=== PATIENT | female | born 1995 | race Caucasian/White ===

== ENCOUNTER 2023-08-28 16:39 | Outpatient (RCR) | payer SELFPAY ==
[2023-08-28 17:33] LABS: HCG Quantitative 31 mIU/mL
[2023-08-30 14:09] LABS: HCG Quantitative 100 mIU/mL
== END 2023-09-26 18:20 | disposition home or self-care (01) ==
LOC: LAB 16:39
PROVIDERS: Visit Provider Obstetrics & Gynecology
DX: N92.6 Irregular menstruation, unspecified (principal)
CPT/HCPCS: 36415; 84702

== ENCOUNTER 2023-10-04 16:34 | Outpatient (OUT) | payer OTHER, SELFPAY ==
--- NOTE | 2023-10-04 16:36 | US_ITS ---
The [address] [address] Patient Name: ZEUS MORRIS MRN: [id number] date: 1995 Sex: F Assigned Patient Location: [facility] Current Patient Location: [facility] Accession/Order Number: [id number] Exam Date: 10/04/2023 17:36 Report Date: 10/04/2023 18:50 At the request of: MAIKOL PADRON Procedure: US OB transvaginal EXAM: US OB transvaginal HISTORY: Spotting in early . COMPARISON: None available. TECHNIQUE: Transvaginal ultrasound of the pelvis was performed using Duplex Doppler and color-flow. Transvaginal ultrasound medically necessary for optimal imaging. FINDINGS: Ultrasound images demonstrate a gravid uterus with a single intrauterine gestational sac. Mean sac diameter measures 3.40 cm, indicative of a 8 week 4 day gestation. Within the gestational sac is a well-defined embryo with a crown rump length measuring 2.25 cm indicative of a 9 weeks 0 day gestation. AUA of 8 weeks 6 days. Embryonic cardiac activity is noted at a rate of 165 beats per minute. Yolk sac noted measuring 0.26 cm. activity noted by plastic tile layer. Normal-appearing gravid uterus without evidence of subchorionic hematoma, mullerian abnormality, leiomyoma. Cervical length measuring 4.7 cm. Cervix is closed. The right ovary measures up to 2.3 x 1.6 x 1.7 cm, and the left ovary measures up to 2.1 x 2.1 x 2.0 cm. Arterial and venous flow are noted in both ovaries. No significant free fluid is noted within the pelvis. US/US OB transvaginal IMPRESSION: Single live intrauterine gestation at approximately 8 weeks 6 days. No acute findings. Electronically authenticated by: OCHOA BALL Date: 10/04/2023 18:50
--- OUTSIDE RECORDS SUMMARY | 2023-10-04 16:38 | XMS_ITS | CCD ---
Author Organization [facility] Care Team Providers Care Fab[employer] Awning Repairer Name Role Phone Meghan Cevallos Primary Care Physician Debra Fuentse Unavailable Unavailable Ruth Ann Butt Unavailable Unavailable REQUEST, NONE LISTED Primary Care Unavaila ble NEREIDA, DR LASSITER Admitting Unavailable NEREIDA, DR LASSITER Consulting Unavailable NEREIDA, DR LASSITER Attending Unavailable ZIEBER, DR BRANDEE Oquendo Consulting Unavailable NEREIDA, DR LASSITER Admitting Unavailable NEREIDA, DR LASSITER Consulting Unavailable NEREIDA, DR LASSITER Attending Unavailable REQUEST, NONE LISTED Primary Care UnavailStarla Montiel Primary Care Physician James Tineo Attending Unavailable James Tineo Attending Unavailable Allergies Allergy Classification Reported Allergen(s) Allergy Type Date of Onset Reaction(s) Facility (3 sources) Acetaminophen / HYDROcodone; Translations: [acetaminophen-hy drocodone] Drug Allergy [facility] (3 sources) Amoxicillin; Translations: [amoxicillin] Drug Allergy rash [facility] (3 sources) Latex; Translations: [Latex] Drug allergy Eruption of skin (disorder) [facility] (3 sources) Penicillins; Translations: [penicillins] Drug allergy rash [facility] (3 sources) Sulfonamides (Antibiotic); Translations: [sulfa drugs] Drug allergy [facility] (1 source) Acetaminophen / HYDROcodone Drug Allergy 5 [facility] (1 source) Amoxicillin Drug Allergy 5 [facility] (2 sources) Codeine; Translations: [codeine] Drug Allergy 6 [facility] (1 source) Sulfonamides (Antibiotic) Drug allergy (disorder) 6 [facility] (1 source) Loratadine; Translations: [loratadine] Drug Allergy [facility] Repository Medications Current Medications Medication Drug Class(es) Dates Sig (Normalized) Sig (Original) brompheniramine maleate 0.4 mg/ml / dextromethorphan hydrobromide 2 mg/ml / pseudoephedrine hydrochloride 6 mg/ml oral solution (1 source) alpha-Adrenergic Agonist, Uncompetitive M-cozhuz-G-asparta te Receptor Antagonist, Sigma-1 Agonist Start: 05-15-2022 End: 05-17-2022 Bromfed DM oral syrup 10 mL, Oral, q4hr for cold symptoms for 2 day(s), 80 mL, Refill(s) 0, MAX 40 mL/day, [id number], 157.5, cm, 05/15/22 17:48:00 EST, Height/Length Dosing, 59.5, kg, 05/15/22 17:48:00 EST, Weight Dosing Start Date: 05/15/22 Stop Date: 05/17/22 Status: Ordered ibuprofen 600 mg oral tablet (2 sources) Nonsteroidal Anti-inflammatory Drug Start: 11-24-2020 take 1 tablet by mouth every six hours ibuprofen 600 mg Tab 600 mg = 1 tab(s), Oral, q6hr, # 15 tab(s), Refills(s) 0, Pharmacy: [id number], 160, cm, 11/22/20 6:07:00 EDT, Height/Length Dosing, 65, kg, 11/22/20 6:07:00 EDT, Weight Dosing Start Date: 11/24/20 Status: Ordered Multivitamins (2 sources) Start: 10-28-2020 take 1 tablet by mouth once daily Multivitamins 1 tab(s), Oral, Daily, Refill(s) 0 Start Date: 10/28/20 Status: Ordered Problems Active Problems Problem Classification Problem Date Documented Date Episodic/Chronic Asthma (2 sources) Asthma 05-23-2012 Chronic Immunizations and screening for infectious disease (1 source) Encounter for screening for human papillomavirus (HPV); Translations: [ENC SCREENING HUMAN PAPILLOMAVIRUS] Onset: 04-30-2022 Episodic Menstrual disorders (4 sources) Irregular menstruation, unspecified; Translations: [IRREGULAR MENSTRUATION UNSPECIFIED] Onset: 03-24-2022 Chronic Other lower respiratory disease (1 source) Disorder of respiratory system; Translations: [Other specified respiratory disorders] Onset: 05-15-2022 Episodic Other and delivery including normal (2 sources) 05-16-2014 Episodic Substance-related disorders (2 sources) Smoker 01-01-2014 Chronic Comment on above: Added secondary to d ocumentation in Social History. Unclassified (1 source) Tobacco use during ( Confirmed ) 01-01-2014 Unclassified (1 source) Tobacco use during 01-01-2014 Viral infection (3 sources) Herpes simplex type 2 infection; Translations: [Viral disease] Onset: 05-15-2022 10-29-2020 Episodic Past or Other Problems Problem Classification Problem Date Documented Date Episodic/Chronic Other screening for suspected conditions (not mental disorders or infectious disease) (6 sources) Culture positive for methicillin resistant Staphylococcus aureus; Translations: [Encounter for screening for malignant neoplasm of cervix] Onset: 03-21-2018 03-26-2018 Episodic Comment on above: MRSA axilla abscess 03/21/18 Unclassified (1 source) Exposure to 2019 novel coronavirus; Translations: [Contact with and (suspected) exposure to COVID19] Onset: 12-19-2021 Unclassified (2 sources) Streptococcus agalactiae (organism) Resolved: 07-28-2016 07-31-2016 Unclassified (6 sources) Onset: 01-01-2014 Resolved: 11-22-2020 12-04-2014 Results Test Name Value Interpretation Reference Range Facility Coding Summary.on 05-18-2022 Coding Summary. [id number] G h0bWw+PGhlYWQ+EP4DYRC hO28tyHJzvA2QV1fBIY7K HFZSUAMZWL0RTF9atUN1B CbzP4WnubGz PygkiULoOA69GUf4SIS4y XpiUWiovT1zpDVcP7n4Oj BlBX59xY66IQdtHYZgMqK 3LjZpbjsgbWFy Y4cyJiVesHQqZyt+PHRhY mxlIHdpZHRoPScxMDAlJy PdzVowXT6qRi4hCUTmOWJ vbGxhcHNlOiBj y4jzITYmIXmyQJ0wgOujH 1OcpRA5RXYqg8x4Ej08xD I+CUEoHIG7uWzzQIxgn32 2FgLwc3nlVGC1 xOGjAVwcKSJ1P96dd0Z2Z HDbTENuEYZ3fRW7tO1gbV dbyfxdB4XsySOfQgO9TUO 5pAHbwS6leBkl kznlbU2fYju+F79YOA9OS QPIRK4KOtg7K2YsJfixdZ I+WL25OCGnFZ94bGDjiVE cs9sesTz9YqQe GEOgZDU6aEllOGwgm4EeY ABmB01kdVNng9M3WGTijG mftKTmVhXvrRX8qN7lDUg vwlcgy5ctareu Rrgyc0ukrr16hA71Z68iK QbhNHAoDIW4VBMxPHGtpG ilgt2zsM7uDa9+ETtup1q wl6zhyUq4WtEm OHFiyuQtgQdcJKL2b5UnT i53D5LhhIflz2DoDyu4yy 24mFSqz3F3hKB2HNlzJQH nsE3uNKeuCfY8 GVFjDiHpbE13pPGeFZgfL k6ljOeulQpnHT8iQBUgia klVVOcjO6yVFKgoPXsoPn bBJ3pKUMwbexn l450DdRqOFL1CNYqiCHhH 7MqwT5rQbFcQZGzSZUjD6 FpgHRfCAhvS631RSilSuY 9GYTryrBaP2Lx FSKshEegNfU3m0X2Gm7Nv 5ZqrzcpRPI6YEsfLLSiHr UwZvYjQiW7A4PpQsi8KIP jnDocAZ0uG4Fh TGYdytdwqsjgrXI1UJUnP VEilW89pJXrRGdhEr7ru0 W4f868FRZfEREooK66Ux5 udDogMTBwdCBU fG7opcwgh0xnleopPlBcV OZyPLy4NJy8FSIfoVcnTs PsTFL8FdQ1FKG1tCKkeT0 xlTbargfqtG0f Oyc+N95ifR2kZGH5OLT0e wauZDPzneTjDV33RP52Q0 RyPjwvdGFibGU+PGRpdiB hwAknEJ0mGfJv t1vls3CnKBtdP5QqQYZfV TghAie2THMmLSO9qXB9rF 5lTMQgDAses6M2tJZ1L2U ygmDkwh2ie0ay FZQeLHcrI77msELgx5P1W DQelZC2SWRnwLxcHiQiiB 93Oyc+FTOefZsyv5RzYcc fg1ask4xwsYj1 AfMkCUSeqfXpxYdrHTZ3i 9HxEe44U51gQQhmKLWeQE ZvZZDvBHCzoCccja1xsO7 wIi8+PGNvbCB3 lAI9nS6jUJGgCyF5PVaqZ 938LaEgbUHbMybaz6mwy0 frpLy2LwEnCTDbeeNpaVb rRYH1z0OgYc76 N84lSOctCDQcAUBhMGWxK OZysLzaps2vyJ9cLh9+PC 9iu8goqy86aP32gDA+PHR sSSA4fQtdKUtm KXNwiF3pPLraCvV9SGNeG zMipJ79yVVyCShiYb2jbS lsuUniPA5hGTXkdtkpo02 6KyJzg8ctOXTv qLTvIBseANC9N28uc1Z7V ETeYVSxKVL8wHI9fW1jbC lnbjogbGVmdDsgdmVydGl bWIxgCHzcU594 IHRvcDsnPlBhdGllbnQgT cZjLZn8G7IsBhl4WDOdvI huNV2qsNBtXJhbZz3faZc ylEveVG7oUBWg ahvlm515CsCiq2nyGCLcy KUjHLvrXAC5V28bz8F5RJ LnMDJuENX4wQR5iY3ojWc nbjogbGVmdDsg lgFjwZagONguVLgtD186J HRvcDsnPkJpcnRoIERhdG Z9JA49RR83yHVwa0N1tXL 9T5MdYBIigpad ceuwcMK6SOCeWTRqpI46Z t0exHbpVl5dHKMhWJS6TK TfoRGiM3SowC4nOzOkYAD fSBOgS7WazXEs NZuoE840GXgdVvE4BPNly vXsN4ZjIVGmtFycYkU0c7 R6Lk0TG2V8JS88SJ69vPU ff5Y3uNL2D9Yu GFOmourapbfpaBR1WBVlX YExtW76Oy9egFifNu1bFP NnNDA5VUUotIWwD6OgmZ1 yOiAjMDAwMDAw F7TiiLTfNIofN875XTwhP cH3MCVtrdNxI5XfNWIhoI obDkI7z2R0Mf9IMHa2OK2 5TL95wHOus8T1 uCS0G8VdCBOeugqsyeibv UA9MXWwXPWwvC38Hl5jaM zcKb6cMCOtACS2KTJovWJ nO8QhoM5nJxCm LSXmIREuK7GelVQxPZxmZ 722TNwdCbB0VMDktqOnZ5 QdOEUqlQwkXgO4k5U5Tr8 APBVxTK03VLG0 pHU0BK53RZ78J1HoLapvd GFibGU+PHRhYmxlIHdpZH RoPScxMDAlJyBzdHlsZT0 jZf8bMKLuEOKd wAfkaPYiNxPpa9mkLREeB UkdLX0ogWyyY1JgoNJ0ZE Bcl8j1Eb85V54cV6ZejHR +TYBjsWN0oSP4 iJ9hLuWzYvZ3LFcvK197W hTlbIDfMcbml3bjm3nvtF u8SwA7CWWxguKdjOtaCTT 9m3IrJt13Z30c IHdpZHRoPSIxNSUiIHZhb Rgvek0ljI7lFh5+PGNvbC K9wMW6nZ0uLdGfNlR6QFr qM237YhAqhLAx Ripkn8drc6uraPz4ZgOfQ KCniaQdhVarCPF6y3EaHf 19A5DlqYynt9PnHiz9dq2 7bXQjl9F8zVN1 C9LfRPIcpjywzIGpsYamW K1uKLKfhwdvKNYlkN7yYU UgO1n5DjNsPlI8DZfzW7R oejK3PBNwgQMj NXhyWFL2V99gu4R3HDQwC RAyWOT6lZU3nU5ngUjxpa ogbGVmdDsgdmVydGljYWw pDCboY919VUYe dVpbGMYalX3bSEGspNUna RtbPY0aTOCwyvsxYfSMX4 RMRSwgQUxFRVNIQSBTPC9 8BW69bZRnz3J0 bRK6N5JqKXAnirqyparzt BR3TTEoPVZtvM55bWFpIE qbGu9os0W8w826WRZeAHS kmK27Fa5jeKvj FCFpvDHGmV9fbmoqh5mri ncmZzZkSHQpVCy6BKr0QU RypQyzOnWdOCJ6VaR1KKV 4jQRxfC4ewOwz eoyrvD8xUlb+MDIvMjYvM Du8ScxkjSL+XJBiVLX3zR wdTCuvQDHorJ0dXASqZ8w 1XyBbPyH2JCgr T7JzFACvopqvMq55yH5eJ sFxDcH8GTtlT8GojsI8AK OwmCGdCUhbWGU3P00qo6J 9ALVmIBWwCNO8 wSC1wJ5jwIetgioxiQKgu DsgdmVydGljYWwtYWxpZ2 17MPIznXcvIcF4LFxpKYA qJK47WQ44zAGz k7R4kXX2M8XqPOGjngujd ozkjJW9UYSkFLVcbL03cM LtFXrrEp9yb2P8k105GBF zRWYbsN10Tx9s qDngHHToiPIKhZ9uvqzwc 2jdtvvfQqUwQSRvACm5BR t2PZJxyJxmZsHgNGB0LhP 5LEA5tTTgzZ6j rWwaljmxrF4hPli+RmVtY HieCX60WA82zWYdf2A9eP N9J8YvENClopsqhvvabWP 7MPXoKTNexL55 sTCxKHqwBn6cp7O2j796P GZkUVBnsO69Ke5ouMmxRX FwhEPUsT7rfloth3irywm gIzAwMDAwMDt0 MSn0KSOcmSclIdKfZDQ8C gF7KZQ5wQDyuY8ltQusys cbyR6tGor+AJ5tgycijrZ 9QZ62MQ06P0Tp PjwvdGFibGU+PHRhYmxlI HdpZHRoPScxMDAlJyBzdH wmCD5qJo2vWZKwEBRpeDn haQQzZsGzf9zk YFYoAAmlJS8ryDgeE6Jzl BY3XHWwt4p3Ka57X10yX9 JvdXA+GIHsyIC6nYC5xL1 lIjLsDeG1JFvl N079XkIvzDViGhhpm8vzq 4ltzTd8HdFhVSXjdxVrbT iqWNN9d5IbXo78T90hLZn pZHRoPSIyMCUi MXKbvWwsng6qdJ7wHn7+P ERugPH3yCR6cI9zKoAkUl H3TOiiM955JaBvdUQcFej zK26pD8VwiFU+ FEDkZou0EPZksTyfKZ3yq HOkZXryId7lVDF5OcZnTw FgQHvbQ3KyPEQwzxcixic jaJQ8FSZkYLFg lK62Wm3xeQgtTr8jIQUvK TF0ICNokVXvA3XzjD2bOk YqQOTiGFApF3FslXVnRVi wN279GDnzStC7 AUXqbiZuY8PfUJGyiSibS oF5m5D9Et7KbEjpxKXaJY 4nQiThIYa6U6OkVjy4MFK vwIkpBG3caVCr GIgiZj7ouKbryPjvGJ2sP YXfpldwr918JeBgu0aoDO WwgUHqTZpzTRC3J71fq3C 4IGDtNHRlGBT7 kKL7uW0ieNcvaaxsmIStz DsgdmVydGljYWwtYWxpZ2 42ZAHngJfaAcLBVyf9P9Z uHdq4RZRaqVya CE4xwLTaPOdqMb5ytGess OmoRP1zSMEudwdhz587Mx Qcr9mmTTIstUOdXRmcXUB 2K09ww3C3GUMh AGSgIPM5eFG6vX6evYmxu jogbGVmdDsgdmVydGljYW ueUDgtR756IICkuSzkZj6 RGlz6X2ScFhp6 KTCuiEbtAI5moWNfUUyfO s2xpUsjhMebSJ1vAZHtom bqw504PvUlj7cwVIHcqKR dATuqHBB3Z40x m2L8NZOqYGBnCMF5bVD1h D9rrHpcpoddrAKvhMksjm SmgGnvLEyeLEtuM215BQC vcDsnPlBheWVy OjwvdGQ+IA46zq26K2FkT bzyJir4QUIfTKF2nCS9jT 0gWRGyTYlzd2K9aJK1F3C awvLyfo9zv9bv YXBz (more content not included)... [facility] Discharge Instructionson Discharge Instructions [id number] .00CD:127 [facility] Prescriptions/Work Noteson 1 07-17-2021 Prescriptions/Work Notes [id number] .00CD:127 Normal [facility] Consent for Treatmenton 04-28 Consent for Treatment [id number]#1 .00CD:127 Normal [facility] ED Clinical Summaryon 2021 ED Clinical Summary [place] [address] ED Clinical Summary Person Information Name: ZEUS MORRIS [place] Age: 26 Years : 1995 Sex: Female Language: Qatari PCP: Alan DOE, Starla Whitfield Marital Status: Single Phone: [phone] MRN: [id number] Visit Id: Visit Reason: Sinus Pain/Congestion; Throat pain - Adult; Cough; COUGH, LOSS OF VOICE, CONGESTED Speciality: Acuity: 4 Enc Type: Emergency Med Service: Emergency Arrival: 05/15/2022 17:29:23 Discharge: 05/15/2022 18:16:04 LOS: 000 00:47 Checkin: 05/15/2022 17:29:23 Checkout: 05/15/2022 18:16:04 Dispo Type: Home (Routine DC) EVENTS: Event Name Event Status Request Date/Time Start Date/Time Complete Date/Time Arrive Complete 05/15/2022 17:29:23 05/15/2022 17:29:23 05/15/2022 17:29:23 Document Home Meds Request 05/15/2022 17:29:23 Triage Complete 05/15/2022 17:29:23 05/15/2022 17:48:22 05/15/2022 17:48:22 Bed Assign Complete 05/15/2022 17:48:46 05/15/2022 17:48:46 05/15/2022 17:48:46 Dr Exam Complete 05/15/2022 17:48:46 05/15/2022 17:51:08 05/15/2022 17:51:08 RN Exam Complete 05/15/2022 17:48:46 05/15/2022 18:05:07 05/15/2022 18:05:07 Registration Complete 05/15/2022 17:51:08 05/15/2022 17:59:09 05/15/2022 17:59:09 Reg Complete Request 05/15/2022 17:59:09 Reg Bed Request Complete 05/15/2022 17:59:09 05/15/2022 17:59:09 05/15/2022 17:59:09 Discharge Complete 05/15/2022 18:01:21 05/15/2022 18:16:09 05/15/2022 18:16:09 Dr Exam Complete 05/15/2022 18:06:03 05/15/2022 18:06:03 05/15/2022 18:06:03 Registration Request 05/15/2022 18:06:03 Transfer Complete 05/15/2022 18:16:09 05/15/2022 18:16:09 05/15/2022 18:16:09 ADDRESS: [address] [place] [address] [place] [id number] PHYS DOC NOTES: MEDICAL INFORMATION: Prescriptions Given: New Medications [id number], [address] [facility] [place] [id number], [phone] brompheniramine/dextr omethorphan/PSE (Bromfed DM oral syrup) 10 Milliliter By Mouth every 4 hours as needed for cold symptoms for 2 Days. MAX 40 mL/day. Refills: 0. Medications to Continue with No Changes Other Medications ibuprofen (ibuprofen 600 mg Tab) 1 Tablets By Mouth every 6 hours. Refills: 0. multivitamin, ( Multivitamins) 1 Tablets By Mouth every day. PATIENT EDUCATION INFORMATION: Instructions: Viral Respiratory Infection, Etcq-Ug-Eoyb Follow up: With: Address: When: Alan DOE, Starla Whitfield [address] [place], [place] [id number] In 3 days 05/18/2022 DIAGNOSIS: 1:Viral respiratory illness; Other viral agents as the cause of diseases classified elsewhere Normal [facility] ED Note-Physicianon 05-15-20 ED Note-Physician Basic Information Time Seen: Meghan Paniagua PA-C 05/15/2022 17:51 Chief Complaint Pt. presents to the ed with c/o sore throat, cough, and congestion that started a few days ago. History of Present Illness 26-year-old female presents with a cough and nasal congestion and hoarse voice for the past 3 days. She been taking Tylenol fwvc-ylp-trfcymu. Denies fever, shortness of breath or chest pain Review of Systems Review of systems negative unless otherwise stated in HPI Physical Exam Vitals & Measurements T: 37.0 ?C(Oral) HR: 109(Peripheral) RR: 20 BP: 116/79 SpO2: 100% HT: 157.48 cm WT: 59.5 kg BMI: 23.99 GENERAL: ALERT, NO ACUTE DISTRESS, talking in full complete sentences SKIN: WARM, DRY, INTACT; NO CYANOSIS, NO RASH HEAD: NORMOCEPHALIC, ATRAUMATIC ENT: EYE: PERRL, EOMI, NORMAL CONJUNCTIVA, NO DISCHARGE, NO NYSTAGMUS NOSE: NARES PATENT MOUTH: ORAL MUCOSA MOIST THROAT: NO STRIDOR NECK: SUPPLE, TRACHEA MIDLINE, FROM CARDIOVASCULAR: RRR, NO MURMUR, +S1, +S2 RESPIRATORY: LUNGS CTA, NON-LABORED RESPIRATIONS, BS EQUAL, SYMMETRICAL EXPANSION, NO RHONCHI, WHEEZES, RALES, NO STRIDOR, NO RETRACTIONS EXTREMITIES: FROM X 4 NEUROLOGICAL: A&OX3 PSYCHIATRIC: COOPERATIVE, APPROPRIATE MOOD AND AFFECT Medical Decision Making Likely viral be prescribed Bromfed and follow-up with family doctor. Afebrile, not tachycardic, tolerating p.o. and ambulating at baseline and hemodynamically stable to be discharged home. Educated side effect of medications. Answered all questions. Patient in agreement with treatment. Assessment/Plan 1. Viral respiratory illness (J98.8: Other specified respiratory disorders) Ordered: brompheniramine/dextr omethorphan/PSE, 10 mL, Oral, q4hr for cold symptoms for 2 day(s), 80 mL, Refill(s) 0, MAX 40 mL/day, [id number], 157.5, cm, 05/15/22 17:48:00 EST, Height/Length Dosing, 59.5, kg, 05/15/22 17:48:00 EST, Weight Dosing Other viral agents as the cause of diseases classified elsewhere (B97.89: Other viral agents as the cause of diseases classified elsewhere) Disposition Plan Patient Discharge Condition Stable Discharge Disposition Home Discharge Prescription List Prescriptions Bromfed DM oral syrup, 10 mL, Oral, q4hr, PRN Follow-up With When Contact Information Starla Phillips MD In 3 days 05/18/[address] [place] [address]- Additional Instructions: Patient Education Viral Respiratory Infection, Yece-Ki-Necc Attestation This visit was performed by both the physician and an APC. I performed all aspects of the MDM as documented. 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 Medications Inpatient No active inpatient medications Home Bromfed DM oral syrup, 10 mL, Oral, q4hr, PRN ibuprofen 600 mg Tab, 600 mg= 1 tab(s), Oral, q6hr Multivitamins, 1 tab(s), Oral, Daily Allergies amoxicillin (rash) penicillins (rash) Latex (Rash) Lortab sulfa drugs Social History Alcohol - Denies Alcohol Use, 06/10/2013 Employment/School Student, 03/02/2014 Exercise - Does not exercise, 03/02/2014 Home/Environment Lives with Mother. Living situation: Home/Independent. Alcohol abuse in household: No. Substance abuse in household: No. Smoker in household: Yes. Injuries/Abuse/Neglec t in household: No. Feels unsafe at home: No. Safe place to go: Yes. Agency(s)/Others notified: No. Family/Friends available for support: Yes. Concern for family members at home: No. Major illness in household: No. Financial concerns: No., 03/02/2014 Nutrition/Health Regular, 03/02/2014 Sexual Sexually active: Yes. Number of current partners 1., 03/02/2014 Substance Abuse - Denies Substance Abuse, 06/10/2013 Tobacco - High Risk, 05/18/2016 10 or more cigarettes (1/2 pack or more)/day in last 30 days Tobacco Use:., 12/19/2021 Cigarettes, 03/21/2018 10 or more cigarettes (1/2 pack or more)/day in last 30 days Tobacco Use:., 02/14/2018 Current Every Day Smoker, Cigarettes, 4 per day., 06/10/2013 Family History Diabetes mellitus type 1: Mother. Hyperlipidemia: Father. Hypertension: Mother. Primary malignant neoplasm of female genital organ: Mother. Stroke: Mother. Lab Results No qualifying data available. Diagnostic Results No qualifying data available. Normal [facility] Comment on above: Result Comment: Elec tronically Signed By: Meghan Paniagua PA-C\.br\Date and Time Signed: 05/15/22 18:07 EST\.br\Electronically Co-Signed By: James Tineo DO\.br\Date and Time Co-Signed: 05/15/22 19:43 EST ED Patient Education Noteon 05-15-2022 ED Patient Education Note Infectious Disease Viral Respiratory Infection A viral respiratory infection is an illness that affects parts of the body that are used for breathing. These include the lungs, nose, and throat. It is caused by a germ called a virus. Some examples of this kind of infection are: ? A cold. ? The flu (influenza). ? A respiratory syncytial virus (RSV) infection. A person who gets this illness may have the following symptoms: ? A stuffy or runny nose. ? Yellow or green fluid in the nose. ? A cough. ? Sneezing. ? Tiredness (fatigue). ? Achy muscles. ? A sore throat. ? Sweating or chills. ? A fever. ? A headache. Follow these instructions at home: Managing pain and congestion ? Take qdev-wyj-vebtfsa and prescription medicines only as told by your doctor. ? If you have a sore throat, gargle with salt water. Do this 3?4 times per day or as needed. To make a salt-water mixture, dissolve ??1 tsp of salt in 1 cup of warm water. Make sure that all the salt dissolves. ? Use nose drops made from salt water. This helps with stuffiness (congestion). It also helps soften the skin around your nose. ? Drink enough fluid to keep your pee (urine) pale yellow. General instructions ? Rest as much as possible. ? Do not drink alcohol. ? Do not use any products that have nicotine or tobacco, such as cigarettes and e-cigarettes. If you need help quitting, ask your doctor. ? Keep all follow-up visits as told by your doctor. This is important. How is this prevented? ? Get a flu shot every year. Ask your doctor when you should get your flu shot. ? Do not let other people get your germs. If you are sick: ? Stay home from work or school. ? Wash your hands with soap and water often. Wash your hands after you cough or sneeze. If soap and water are not available, use hand faith doctor. ? Avoid contact with people who are sick during cold and flu season. This is in fall and winter. Get help if: ? Your symptoms last for 10 days or longer. ? Your symptoms get worse over time. ? You have a fever. ? You have very bad pain in your face or forehead. ? Parts of your jaw or neck become very swollen. Get help right away if: ? You feel pain or pressure in your chest. ? You have shortness of breath. ? You faint or feel like you will faint. ? You keep throwing up (vomiting). ? You feel confused. Summary ? A viral respiratory infection is an illness that affects parts of the body that are used for breathing. ? Examples of this illness include a cold, the flu, and respiratory syncytial virus (RSV) infection. ? The infection can cause a runny nose, cough, sneezing, sore throat, and fever. ? Follow what your doctor tells you about taking medicines, drinking lots of fluid, washing your hands, resting at home, and avoiding people who are sick. This information is not intended to replace advice given to you by your health care provider. Make sure you discuss any questions you have with your health care provider. Document Released: 04/27/2009 Document Revised: 05/23/2019 Document Reviewed: 06/25/2018 Elsevier Patient Education ? 2019 [employer]. Normal [facility] ED Patient Summaryon 022 ED Patient Summary [place] [id number] Patient Discharge Instructions Person Information Name: ZEUS MORRIS Age: 26 Years Arrival Date: 05/15/2022 17:29:23 Discharge Diagnosis: 1:Viral respiratory illness; Other viral agents as the cause of diseases classified elsewhere Primary Care Physician: Starla Phillips MD Provider Information Primary Provider: James Tineo DO [facility] Counselor:None The exam and treatment you received in the Emergency Department were for an urgent problem and are not intended as complete care. It is important that you follow up with a doctor, nurse practitioner, or physician?s trust operations assistant for ongoing care. If your symptoms become worse or you do not improve as expected and you are unable to reach your usual health care provider, you should return to the Emergency Department. We are available 24 hours a day. ZEUS MORRIS has been given the following list of patient education materials, prescriptions and follow-up instructions: Follow-up Instructions: With: Address: When: Starla Phillips [place] [place] [address] In 3 days 05/18/2022 In the event that this physician does not participate in your insurance network, please consult with your insurance company to find a nearby participating provider. Patient Education Materials: Viral Respiratory Infection, [id number] A MESSAGE TO ALL PATIENTS REGARDING OPIOIDS PRESCRIPTION OPIOIDS: WHAT YOU NEED TO KNOW Prescription opioids can be used to help relieve [id number] pain and are often prescribed following a surgery or injury, or for certain health conditions. These medications can be an important part of the treatment but also come with serious risks. It is important to work with your healthcare provider to make sure you are getting the safest, most effective care. WHAT ARE THE RISKS AND SIDE EFFECTS OF OPIOID USE? Prescription opioids carry serious risks of addiction and overdose, especially with prolonged use. An opioid overdose, often marked by slowed breathing, can cause sudden . The use of prescription opioids can have a number of side effects as well, even when taken as directed: ? Tolerance?meaning you might need to take more of the medication for the same pain relief ? Physical dependence?meaning you have symptoms of withdrawal when a medication is stopped ? Increased sensitivity to pain ? Constipation ? Nausea, vomiting, and dry mouth ? Sleepiness and dizziness ? Confusion ? Depression ? Low levels of testosterone that can result in lower sex drive, energy, and strength ? Itching and sweating RISKS ARE GREATER WITH: ? History of drug misuse, substance use disorder, or overdose ? Mental health conditions (such as depression or anxiety) ? Sleep apnea ? Older age (65 years and older) ? Avoid alcohol while taking prescription opioids. Also, unless specifically advised by your health care provider, medications to avoid include: ? Benzodiazepines (such as Xanax or Valium) ? Muscle relaxants (such as Soma or Flexeril) ? Hypnotics (such as Ambien or Lunesta) ? Other prescription opioids KNOW YOUR OPTIONS Talk to your health care provider about ways to manage your pain that don?t involve prescription opioids. Some of these options may actually work better and have fewer risks and side effects. Options may include: ? Pain relievers such as acetaminophen, ibuprofen, and naproxen ? Some medication that are also used for depression or seizures ? Physical therapy and exercise ? Cognitive behavioral therapy, a psychological, goal-directed approach, in which patients learn how to modify physical, behavioral, and emotional triggers of pain and stress. IF YOU ARE PRESCRIBED OPIOIDS FOR PAIN: ? Never take opioids in greater amounts or more often than prescribed. ? Follow up with your primary health care provider. o Work together to create a plan on how to manage your pain. o Talk about ways to help manage your pain that don?t involve prescription opioids. o Talk about any and all concerns and side effects. ? Help prevent misuse and abuse o Never sell or share prescription opioids. o Never use another person?s prescription opioids. ? Store prescription opioids in a secure place and out of reach of others (this may include visitors, children, friends, and family). ? Safely dispose of unused prescription opioids: Find your community drug take-back program or your pharmacy mail-back program, or flush them down the toilet, following guidance from the Food and Drug Administration (www.fda.gov/Drugs/Re sourcesForYou). ? Visit www.cdc.gov/drugoverd ose to learn about the risks of opioids abuse and overdose. ? If you believe you may be struggling with addiction, tell your health body care manager and ask for guidance or memo (more content not included)... Normal [facility] PAP ACOG PANEL 2: 21 to 29on 05-04-2022 . . Normal [facility] Comment on above: Performed By: #### [id number] #### [facility] [address] [place] [address] Dr. Rashawn Lucas Age Gdln ACOG Testing 21-29 [facility] Comment on above: Performed By: #### [id number] #### [facility] [address] [place] [address] Dr. Rashawn Lucas DIAGNOSIS: Comment Normal [facility] Comment on above: Result Comment: NEGA TIVE FOR INTRAEPITHELIAL LESION OR MALIGNANCY. Performed By: #### [id number] #### [facility] [address] [place] [address] Dr. Rashawn Lucas Methodology: Comment [facility] Comment on above: Result Comment: This liquid based ThinPrep(R) pap test was screened with the use of an image guided system. Performed By: #### [id number] #### [facility] [address] [place] [address] Dr. Rashawn Lucas Note: Comment [facility] Comment on above: Result Comment: The Pap smear is a screening test designed to aid in the detection of premalignant and malignant conditions of the uterine cervix. It is not a diagnostic procedure and should not be used as the sole means of detecting cervical cancer. Both false-positive and false-negative reports do occur. . Performed By: #### [id number] #### [facility] [address] [place] [address] Dr. Rashawn Lucas Performed by: Comment Normal [facility] Comment on above: Result Comment: Greta Arguello, Project Manager/Design Manager (ASCP) Performed By: #### [id number] #### [facility] [address] [place] [address] Dr. Rashawn Lucas Reflex Criteria: Comment [facility] Comment on above: Result Comment: The HPV DNA reflex criteria were not met with this specimen result therefore, no HPV testing was performed. . Performed By: #### [id number] #### [facility] [address] [place] [address] Dr. Rashawn Lucas Specimen adequacy: Comment Normal [facility] Comment on above: Result Comment: Sati sfactory for evaluation. Endocervical and/or squamous metaplastic cells (endocervical component) are present. Performed By: #### [id number] #### [facility] [address] [place] [address] Dr. Rashawn Lucas CBC AUTO DIFFon 03-24-2022 BASO # 0.0 103/ul Normal 0.0-0.1 [facility] Comment on above: Performed By: #### C BC #### [facility] [address] [place] [address] Dr. Rashawn Lucas Basophils/100 WBC (Bld) 0.4 % Normal 0.2-2.0 [facility] Comment on above: Performed By: #### C BC #### [facility] [address] [place] [address] Dr. Rashawn Lucas EO # 0.1 103/ul Normal 0.0-0.7 [facility] Comment on above: Performed By: #### C BC #### [facility] [address] [place] [address] Dr. Rashawn Lucas Eosinophils/100 WBC (Bld) 0.6 % Critically low 0.9-7.0 [facility] Comment on above: Performed By: #### C BC #### [facility] [address] [place] [address] Dr. Rashawn Lucas Erythrocyte distribution width (RBC) [Ratio] 12.3 % Normal 11.0-15.0 [facility] Comment on above: Performed By: #### C BC #### [facility] [address] [place] [address] Dr. Rashawn Lucas Hematocrit (Bld) [Volume fraction] 42.9 % Normal 36.0-48.0 [facility] Comment on above: Performed By: #### C BC #### [facility] [address] [place] [address] Dr. Rashawn Lucas Hemoglobin (Bld) [Mass/Vol] 14.9 g/dL Normal 12.0-16.0 [facility] Comment on above: Performed By: #### C BC #### [facility] [address] [place] [address] Dr. Rahsawn Lucas IG # 0.04 10e3/ul Critically high 0.00-0.03 [facility] Comment on above: Performed By: #### C BC #### [facility] [address] [place] [address] Dr. Rashawn Lucas IG % 0.4 % Normal 0.0-0.5 [facility] Comment on above: Performed By: #### C BC #### [facility] [address] [address] [address] Rashawn Lucas LYMPH # 2.1 103/ul Normal 1.2-3.8 [facility] Comment on above: Performed By: #### C BC #### [facility] [address] [place] [address] Dr. Rashawn Lucas Lymphocytes/100 WBC (Bld) 20.1 % Critically low 20.5-60.0 [facility] Comment on above: Performed By: #### C BC #### [facility] [address] [place] [address] Dr. Rashawn Lucas MANUAL DIFF REQ NO Normal [facility] Comment on above: Performed By: #### C BC #### [facility] [address] [place] [address] Dr. Rashawn Lucas MCH (RBC) [Entitic mass] 31.1 pg Normal 26.7-34.0 [facility] Comment on above: Performed By: #### C BC #### [facility] [address] [place] [address] Dr. Rashawn Lucas MCHC (RBC) [Mass/Vol] 34.7 g/dL Normal 29.9-35.2 [facility] Comment on above: Performed By: #### C BC #### [facility] [address] [place] [address] Dr. Rashawn Lucas MCV (RBC) [Entitic vol] 89.6 fL Normal 81.0-99.0 [facility] Comment on above: Performed By: #### C BC #### [facility] [address] [place] [address] Dr. Rashawn Lucas MONO # 0.6 103/ul Normal 0.3-0.8 [facility] Comment on above: Performed By: #### C BC #### [facility] [address] [place] [address] Dr. Rashawn Lucas Monocytes/100 WBC (Bld) 5.9 % Normal 1.7-12.0 [facility] Comment on above: Performed By: #### C BC #### [facility] [address] [place] [address] Dr. Rashawn Lucas NEUT # 7.6 103/ul Critically high 1.4-6.5 [facility] Comment on above: Performed By: #### C BC #### [facility] [address] [place] [address] Dr. Rashawn Lucas Neutrophils/100 WBC (Bld) 72.6 % Normal 43.0-75.0 [facility] Comment on above: Performed By: #### C BC #### [facility] [address] [place] [address] Dr. Rashawn Lucas Platelet mean volume (Bld) [Entitic vol] 8.7 fL Critically low 9.5-13.5 [facility] Comment on above: Performed By: #### C BC #### [facility] [address] [place] [address] Dr. Rashawn Lucas PLT 204 103/ul Normal 150-450 [facility] Comment on above: Performed By: #### C BC #### [facility] [address] [place] [address] Dr. Rashawn Lucas RBC 4.79 106/ul Normal 4.20-5.40 [facility] Comment on above: Performed By: #### C BC #### [facility] [address] [place] [address] Dr. Rashawn Lucas WBC 10.4 103/ul Normal 4.0-11.0 [facility] Comment on above: Performed By: #### C BC #### [facility] [address] [place] [address] Dr. Rashawn Lucas GLYCOHEMOGLOBIN A1Con 2021 ADA RECOMMENDATION SEE BELOW Normal [facility] Comment on above: Result Comment: ADA RECOMMENDED LIMIT 4.0 - 6.0 ADA THERAPEUTIC TARGET < 7.0 ACTION SUGGESTED > 7.0 Performed By: #### A 1C #### [facility] [address] [place] [address] Dr. Rashawn Lucas Glucose [Mass/Vol] 91 mg/dL Normal [facility] Comment on above: Performed By: #### A 1C #### [facility] [address] [address] [address] Rashawn uLcas HbA1c (Bld) [Mass fraction] 4.8 % Normal 4.5-6.2 [facility] Comment on above: Performed By: #### A 1C #### [facility] [address] [place] [address] Dr. Rashawn Lucas TSHon 03-24-2022 TSH 2.091 uIU/mL Normal 0.358-3.740 [facility] Comment on above: Performed By: #### T SH #### [facility] [address] [place] [address] Dr. Rashawn Lucas US PELVIS AND TRANSVAGon US PELVIS AND TRANSVAG EXAMINATION: US PELVIS AND TRANSVAG HISTORY: Irregular periods COMPARISON: No relevant comparison available. TECHNIQUE: Transabdominal and transvaginal sonographic examination. FINDINGS: UTERUS: Normal size and appearance. Uterus size: 7.8 x 3.9 x 5.2 cm ENDOMETRIUM: Normal homogeneous appearance. IUD low within the endometrial cavity. Endometrial thickness: 1 mm RIGHT OVARY: Contains a 1.2 cm dominant follicle versus benign cyst. Duplex Doppler demonstrates normal waveform and flow; resistive index 0.6. Ovary size: 3.1 x 2.7 x 2.0 cm LEFT OVARY: Normal size and appearance. Duplex Doppler demonstrates normal waveform and flow; resistive index 0.5. Ovary size: 3.3 x 1.4 x 1.7 cm CUL-DE-SAC: Unremarkable. No significant free fluid. BLADDER: Unremarkable. OTHER: None. IMPRESSION: 1. IUD within endometrial cavity and thin endometrium. No suspicious findings to account for patient's symptoms. Electronically authenticated by: BRANDEE PIRES Date: 2022-03-24 17:26 Normal [facility] Coding Summary.on 12-20-2021 Coding Summary. CD:[id number] G h0bWw+PGhlYWQ+CK7MTNC gG60mgOZcgS2HN9nUGF9M KNVOVOMTYW4CJL2qcAP1W FogI8DdraVu PromcCNtDI98OZd1WRP0f OhkDKpmhN4bsXYoW7v8Zo HbQU72lN18SPiaVKUbQoY 3LjZpbjsgbWFy Q2fhIfRfmVZoUmp+PHRhY mxlIHdpZHRoPScxMDAlJy YinOspJG7sBk4uTQLuTKH vbGxhcHNlOiBj u6txTHEkSAgxVM4mbLsqM 6SaxBY6EXVxx0p2Ae33xU I+QBHcRVR5uFuxXVoge58 8KyFvr4ddQZY6 yCXfTXanFXN7Z14oz5D9R WToPHSbRKI5fCB7cM3drV qoweqdR9FnvIMfItM7ZGK 5oIUcgM5igCxq auyvhB9nYib+N06EZH5GM YPQVE1WBxw0T0VvPaczxF I+IV50BOGsCN33kABtyXM bg3fwiWy7OjAo WPOwUIA9cAfiZCkph4GiZ PElB40vpNOye2Z1SCCmdM qtkIKjNzMrmIW5lK4oNTg nmddqk2cdmbhm Cbkvu6wjee67zC19N14yI TocSEPlLVY4OUAtYIKjwK sbfl9kwJ7jWn5+WWrkz3a ga3okzSb9FiHu LUAtexIywOduIJW0a4HzL x46L0YocDpyz2CaThh4ar 81cJQus4D6jTH6BBilPOG keH0pNNdwGyF5 IGVzCgJheH13wGKpKZncA j2vvJddkFlqPY3wIYGtsx tvCWNzqR8tZJJrhIVwqTn vGB5oKESgqqhx e817TgZzNKX8AMKhuTLrP 1OxlE6nEqXxDGWzCNAzW0 YzdOBaYSqwL077QZuwOjK 7QKAngpYuF0Nd VROhfSirAlZ0o0F7Gm2Zp 8GamwvyRSB8IAlnSXF7Oe G7HoSxUeW5T0IkIhi6SPD miLjlHT3eV0Zj NSIptuqjuyudwTC3PGRzW PAfqS50pNWcQPuvZj3ns4 W7j629NFQwEDRfnD47Oz1 udDogMTBwdCBU jP2lfnitp8hleshpLpHiA VRnVTh5JHj1BSJnxXyfSa MyXBG2RqZ3XYF8aIGqdM0 guDulervhdJ5t Oyc+K98chH9oFZY2IAM1s myeTGDbeiQoPR47DE42W7 RyPjwvdGFibGU+PGRpdiB nzOniFI0iQcWh b9oge7QpTHmcT6ZsPQUyU XawLho8VPLaVGH8aJX5pE 3xZJUzXMtxt6Y3wMX9T0J eqfTqtj3ba7lh NIStFXqyS27tiATbb0H1Z ACceTT8DTPojRozNzElyN 93Oyc+XDOtqUuyo5PjXvn mo8hcq5pdpDl2 HcYfDMGmwdUckSktWJP2f 1AaDx33E59uAXgvMBWeKV WdVCQxPDYqsNuomx6hpU0 wIi8+PGNvbCB3 pDS9wY8aPEFpNpU2WCrkY 377MuQzuCTbPgxar6oiu2 cplWx7FtPmMVXemzJvjQx eJHV5s8AzMo58 T52yVXafDKNxICOoWZFgZ OJszBfttr1rmF4lZp2+PC 5ab3cons38zN01aKC+PHR dVBV4tBweSLva GWEhsB3wIXgwOhF1SLHlB mFhkE30aCJyBEizZc9bbI royUzrJJ7zPQDuqbccd24 3TfBbd7hgQSTi oKQsNZkaVMU0E04hf5D6F JQqVTVzDJG1qGT7lU8abJ lnbjogbGVmdDsgdmVydGl aJSulYQlzW041 IHRvcDsnPlBhdGllbnQgT sKiRBb8K0IkEpo3QGKtsO boYF6wzBPsAAvgHa1mnTg hwGodKH3aJJUw euzfs277QvYoz2zuPHGsu PFjQYawQPT4R14kh9Z0DY UiLEGgNKV3iWV5yO5ybPv nbjogbGVmdDsg juJegLoxJNuzUHqwW716V HRvcDsnPkJpcnRoIERhdG W3DI62TV58uUZyi0C8iQM 4A1IkWELqxlrh rxicmJR7XEHqRWPeyZ58G s9cdHkgLd2iKAUwYUC1BP JbuVTrA8GqsN8oLcPsJDN hHROsP6ZifSTg JDwrY601MUbxNfX1XVHiu pXbL4KcULExrAhxPqA5e1 K8Jm7XM2V3EF96QU96lTV lb3X2pAI4X2Nb WOWpponefarcvSM7MRErE PBnmG05Jz5yxSngQi8uTJ NkBGR4WRYrdEZaB8OddA7 yOiAjMDAwMDAw T0HhfZJrTXrwS979YOhnD zE6DFXsyoMfG9JpWUTymB suEqB8c9T8Qs0RDJw8PM0 8UO85tKSia1M8 uJZ6X9GdOSItxiadexxbg LT1FIVvIKQviG16Qk0odG ckWj6uDPGhFKG9KLDxhOY yD8LenY6dQpVe RJRwCXHaQ9ScwFXyKGvrU 765OZxxYzS1EPBsmrQrU0 PlRDPouQplPlG7x0P0Hy1 OZVBlXA10HDK5 tXN3QA51CI30S5YfJwmgu GFibGU+PHRhYmxlIHdpZH RoPScxMDAlJyBzdHlsZT0 jOl5jFQOoZWFk cUxdbMWyLyNhq8rpCNKbI GeqIA9gwLtwL7IsvDO0PC Ksw7a9Hd32O68eL8XcqAE +MGOaoRK0tSZ9 fC5kPpQsEyP5MSisV038A vBtsTKyMekjz7sag6nybB g5AlU7VWVaheUvqRkyPZQ 0e6VpVh70M04z IHdpZHRoPSIxNSUiIHZhb Nooou0ajH4pQj1+PGNvbC Q1gAN7cT9aElXnOrT6TYf lO240PiKisKBz Zrrsd9pcd9hwyOs2UdZjY SUyvzEfkOsxJXL0k5TaFr 16G0SesIqkn7EkBgh1nj1 4gOHnu5X7uFM4 C9AjEPValawilNTdvDpfA G1uKZEimypbBFRavE4xMJ JgF6h6CsSgRvI7DRiwD8T xtkT7HOLtlSNk CFfaNTJ2K52ir6S9NEQwY TKwWZE5cNA1dT4jyWmkdg ogbGVmdDsgdmVydGljYWw bKZufH680XWKm mAxjWCCkwH9mTYUceLMkc QreSG9oKZYaokmtQeMHF8 RMRSwgQUxFRVNIQSBTPC9 1PM27kFJcm7E7 oLJ5N3DsTCLcpnvujwqtr VP2KQRtOQVfcK06qKYaQA kbHv5pr0B4t162HZMnQKA aaH07Fr3aoNbc HGLpmCIRtK6zwtrdc5vul ljaTvPiLQWqBXf6HZl5OJ LrbHslPxBeAIB5PyX5INW 4kRJtxX9rnVhi vuyquU9zOuf+MDIvMjYvM Gq5JnardIM+VOSsDAG6wC zcDGdaURQfjQ1oBJHhQ5t 0MaNaLpG6MPsd W9HkUSHdognlZg52dS2vJ aDgPzL8JSxkZ6XwlyX2PP ObrMTwNIytTYV9E44gd3Y 9OGVyBANcFHJ5 cVA3bE6diMjqqcreoHNyr DsgdmVydGljYWwtYWxpZ2 05ZJZuuQjdTdX3WNkuDBG bIG37HN93oYFp e7D0gPB7R3CaYVKzwlhvh swtaRB2LHXzLXWivB65eJ HrNNpdIv8ye8O0d848GMN xWPQwnD11Zs4h iEgpWOOpxRCYzJ9upcdau 7vzvkqpHjZwRRDiMCh1NE a3BZMrvGivCeCzBOQ1BtV 3KHX4pYGlvT0q iDsjscurhP1vRie+RmVtY JimOY64IM10gEXxj4X7vU V1Y2VzPPEhwtrbbgxpaAO 9GNErTNHufW83 gTJfUZaxVe0er6F0v240A MNgHRZkrW95Zm3lfFnpFE YfqFFVxK9uapovy9ijiea gIzAwMDAwMDt0 ASz5CHJhyInnZuUfHNK1G zQ7COS4lIWkdI0vhJxycf ukcJ2kUxb+RC7zrseyyiE 6JL01WE86I0Pu PjwvdGFibGU+PHRhYmxlI HdpZHRoPScxMDAlJyBzdH qiBP5rCa1eLEHpBUHkeYb vtISpWzMgd7qi KTVkZKjhGV1cdCntJ2Nqn KZ0LQGzk3x9Jb91B45lZ3 JvdXA+WRJmxGV7mKO4yS0 jZmWsMfA6UNcu J808KmIxlLXrHdrix6yvq 1irsQy2NyPkRZUdtlYykP euFTZ9g1GoWw81A17qYHl pZHRoPSIyMCUi TSLhpJiwfb6aiQ0pFy6+P IInvBL8cZH2fO2sZzJgIh I1ESxfL143NkOlwQNwKgm jW08cL7JnrXP+ KIPaXtt9DEGjwTesGN3wg HTkWFezRq6iLNA7ZqPoQx NvBEsaM1PwDQObgoarygh byFL6WURxJCEl nI39Oc6woEidKx6lRXXdC LW9NYZaaVVdZ5VuaJ7zKa RbQCSwOCFaS5SdkXQpHUv rR546QZsiRhC2 YBNqxwIwE7DzVUDooFcxD lY8b9J9Tv2HqYotwZHdQA 7aOgGoAEq1N9QfNbq5EHL rmHcpZV5ccOFq IOscNv1maLhoiJioKZ7tG BWiwgvnf156RvWgf6khSG TxkZDgPMksDZT8U24qw6F 7CALxWPOfFXK0 iER4zG5auKcukokrjYHla DsgdmVydGljYWwtYWxpZ2 62FWSvfDutQdMNSmv6O0Z dMlt2TCCtzEpk OA3jmHXwEIuyVg6lqPrll UmrLS9gFBTjvqzld500Tt Zcn9luLSXgsGKyAJinFAW 4R16cj3Y6AJBv EFGbNEE9bMD4lB8rdGkim jogbGVmdDsgdmVydGljYW mbEZmxQ897DHJhgUyzPr7 TAvj4A8WkWnk5 FSJziNcxOG4wgRZsOIbmT a8hxUrlyOsbZB9wQPLozc pbe492XvSjy3woUNVhvXU bTCsmFZA8N77q c9F4XLWfPNTfJAX9yDO4n D3arGsxjyxuyYJkbQbxld TyoOpqFIfrORwkY818SQV vcDsnPlBheWVy OjwvdGQ+HG07nv05L2ZeA tniZdh0ZFSgGLO2iJJ9pR 8fTYZcXKgvm3F8bAH3F8E ploPyso4ky2on YXBz (more content not included)... Normal [facility] Consent for Treatmenton 11-27 Consent for Treatment [id number] Normal [facility] ED Clinical Summaryon 2021 ED Clinical Summary [id number] ED Clinical Summary Person Information Name: ZEUS MORRIS [facility] Age: 26 Years : 1995 Sex: Female Language: Qatari PCP: Meghan Cevallos MD Marital Status: Single Phone: [phone] Visit Id: Visit Reason: Fever; NOT FEELING WELL Speciality: Acuity: 4 Enc Type: Emergency Med Service: Emergency Arrival: 12/19/2021 16:19:47 Discharge: 12/19/2021 17:47:56 LOS: 000 01:28 Checkin: 12/19/2021 16:19:47 Checkout: 12/19/2021 17:47:56 Dispo Type: Eloped EVENTS: Event Name Event Status Request Date/Time Start Date/Time Complete Date/Time Arrive Complete 12/19/2021 16:19:47 12/19/2021 16:19:47 12/19/2021 16:19:47 Document Home Meds Request 12/19/2021 16:19:47 Triage Complete 12/19/2021 16:19:47 12/19/2021 16:28:53 12/19/2021 16:28:53 Bed Assign Complete 12/19/2021 16:26:39 12/19/2021 16:26:39 12/19/2021 16:26:39 Dr Exam Complete 12/19/2021 16:26:39 12/19/2021 17:22:32 12/19/2021 17:22:32 RN Exam Complete 12/19/2021 16:26:39 12/19/2021 16:32:21 12/19/2021 16:32:21 Registration Complete 12/19/2021 16:31:27 12/19/2021 16:31:27 12/19/2021 16:31:27 Reg Complete Request 12/19/2021 16:31:27 Reg Bed Request Complete 12/19/2021 16:31:27 12/19/2021 16:31:27 12/19/2021 16:31:27 Pending Labs Complete 12/19/2021 16:40:53 12/19/2021 17:19:15 Lab Complete 12/19/2021 16:40:53 12/19/2021 17:19:15 Registration Complete 12/19/2021 17:22:32 12/19/2021 17:39:27 12/19/2021 17:39:27 Discharge Complete 12/19/2021 17:48:03 12/19/2021 17:48:03 12/19/2021 17:48:03 Transfer Complete 12/19/2021 17:48:03 12/19/2021 17:48:03 12/19/2021 17:48:03 ADDRESS: [address] [place] [id number] PHYS DOC NOTES: MEDICAL INFORMATION: Prescriptions Given: Medications to Continue with No Changes Other Medications ibuprofen (ibuprofen 600 mg Tab) 1 Tablets By Mouth every 6 hours. Refills: 0. multivitamin, ( Multivitamins) 1 Tablets By Mouth every day. PATIENT EDUCATION INFORMATION: Instructions: Follow up: DIAGNOSIS: Normal [facility] ED Note-Physicianon 12-20-19 ED Note-Physician Basic Information Time Seen: James Tineo DO 12/19/2021 17:22 Chief Complaint fever fora couple of days History of Present Illness 26-year-old female with chief complaint of malaise, cough, fever that is been going on for a few days. Currently feeling well. Requesting COVID testing. No aggravating or alleviating factors. Review of Systems A 10 point review of systems is negative except as noted above. Medical and Surgical History: Reviewed and noted Social history: Lives at home Tobacco: Denies Physical Exam Vitals & Measurements T: 36.9 ?C(Oral) HR: 109(Peripheral) RR: 18 BP: 124/84 SpO2: 99% VITALS: I have reviewed the triage vital signs. GENERAL: Well developed, well appearing adult in no acute distress. NEURO: Alert and oriented. Moves all extremities. Face is symmetric and expressive. EYES: PERRL. No scleral icterus or conjunctival injection. No discharge. HENT: Normocephalic, atraumatic. Hearing is grossly intact. Nares grossly patent and without discharge. Mucous membranes moist. NECK: No JVD. Patient moves neck without restriction. CARDIO: Rhythm regular. Normal rate. No murmur, rub, or gallop. Pulses equal bilaterally in the upper and lower extremity. No lower extremity edema. PULM: Lungs clear to auscultation in all lou. No wheezes, rales, or rhonchi. No conversational dyspnea. No splinting, stridor, or accessory muscle use. EXTREMITIES: Symmetric muscle bulk. No joint swelling. No clubbing, cyanosis, or deformity. SKIN: Warm and dry. Normal turgor. No rash or lesions appreciated. PSYCH: Mood, affect, and interaction is appropriate to the setting. Medical Decision Making 26-year-old female to the emergency department with chief complaint of requesting COVID test. Vital stable, the patient is afebrile. Patient currently has no complaints. COVID test was performed. Patient eloped from the department without paperwork. 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 Medications Inpatient No active inpatient medications Home ibuprofen 600 mg Tab, 600 mg= 1 tab(s), Oral, q6hr Multivitamins, 1 tab(s), Oral, Daily Allergies amoxicillin (rash) penicillins (rash) Latex (Rash) Lortab sulfa drugs Social History Alcohol - Denies Alcohol Use, 06/10/2013 Employment/School Student, 03/02/2014 Exercise - Does not exercise, 03/02/2014 Home/Environment Lives with Mother. Living situation: Home/Independent. Alcohol abuse in household: No. Substance abuse in household: No. Smoker in household: Yes. Injuries/Abuse/Neglec t in household: No. Feels unsafe at home: No. Safe place to go: Yes. Agency(s)/Others notified: No. Family/Friends available for support: Yes. Concern for family members at home: No. Major illness in household: No. Financial concerns: No., 03/02/2014 Nutrition/Health Regular, 03/02/2014 Sexual Sexually active: Yes. Number of current partners 1., 03/02/2014 Substance Abuse - Denies Substance Abuse, 06/10/2013 Tobacco - High Risk, 05/18/2016 10 or more cigarettes (1/2 pack or more)/day in last 30 days Tobacco Use:., 12/19/2021 Cigarettes, 03/21/2018 10 or more cigarettes (1/2 pack or more)/day in last 30 days Tobacco Use:., 02/14/2018 Current Every Day Smoker, Cigarettes, 4 per day., 06/10/2013 Family History Diabetes mellitus type 1: Mother. Hyperlipidemia: Father. Hypertension: Mother. Primary malignant neoplasm of female genital organ: Mother. Stroke: Mother. Lab Results Rapid COVID Ag: Not Detected (12/19/21 16:55:00) Rapid COV Int NEG Ctl: Pass (12/19/21 16:55:00) Rapid COV Int POS Ctl: Pass (12/19/21 16:55:00) First Test: YES (12/19/21 16:55:00) Employed in Healthcare: NO (12/19/21 16:55:00) Symptomatic as defined by CDC: YES (12/19/21 16:55:00) Hospitalized?: NO (12/19/21 16:55:00) ICU: NO (12/19/21 16:55:00) Resides in a Congregate Care Setting: NO (12/19/21 16:55:00) ?: NO (12/19/21 16:55:00) Diagnostic Results No qualifying data available. Normal [facility] Comment on above: Result Comment: Elec tronically Signed By: James Tineo DO\.br\Date and Time Signed: 12/19/21 20:10 EDT ED Patient Education Noteon 12-19-2021 ED Patient Education Note Normal [facility] ED Patient Summaryon 022 ED Patient Summary [place] [id number] Patient Discharge Instructions Person Information Name: ZEUS MORRIS Age: 26 Years Arrival Date: 12/19/2021 16:19:47 Discharge Diagnosis: Primary Care Physician: Meghan Cevallos MD Provider Information Primary Provider: James Tineo DO [facility] Counselor:None The exam and treatment you received in the Emergency Department were for an urgent problem and are not intended as complete care. It is important that you follow up with a doctor, nurse practitioner, or physician?s trust operations assistant for ongoing care. If your symptoms become worse or you do not improve as expected and you are unable to reach your usual health care provider, you should return to the Emergency Department. We are available 24 hours a day. ZEUS MORRIS has been given the following list of patient education materials, prescriptions and follow-up instructions: Follow-up Instructions: In the event that this physician does not participate in your insurance network, please consult with your insurance company to find a nearby participating provider. Patient Education Materials: A MESSAGE TO ALL PATIENTS REGARDING OPIOIDS PRESCRIPTION OPIOIDS: WHAT YOU NEED TO KNOW Prescription opioids can be used to help relieve tixrqsvw-um-mcfwje pain and are often prescribed following a surgery or injury, or for certain health conditions. These medications can be an important part of the treatment but also come with serious risks. It is important to work with your healthcare provider to make sure you are getting the safest, most effective care. WHAT ARE THE RISKS AND SIDE EFFECTS OF OPIOID USE? Prescription opioids carry serious risks of addiction and overdose, especially with prolonged use. An opioid overdose, often marked by slowed breathing, can cause sudden . The use of prescription opioids can have a number of side effects as well, even when taken as directed: ? Tolerance?meaning you might need to take more of the medication for the same pain relief ? Physical dependence?meaning you have symptoms of withdrawal when a medication is stopped ? Increased sensitivity to pain ? Constipation ? Nausea, vomiting, and dry mouth ? Sleepiness and dizziness ? Confusion ? Depression ? Low levels of testosterone that can result in lower sex drive, energy, and strength ? Itching and sweating RISKS ARE GREATER WITH: ? History of drug misuse, substance use disorder, or overdose ? Mental health conditions (such as depression or anxiety) ? Sleep apnea ? Older age (65 years and older) ? Avoid alcohol while taking prescription opioids. Also, unless specifically advised by your health care provider, medications to avoid include: ? Benzodiazepines (such as Xanax or Valium) ? Muscle relaxants (such as Soma or Flexeril) ? Hypnotics (such as Ambien or Lunesta) ? Other prescription opioids KNOW YOUR OPTIONS Talk to your health care provider about ways to manage your pain that don?t involve prescription opioids. Some of these options may actually work better and have fewer risks and side effects. Options may include: ? Pain relievers such as acetaminophen, ibuprofen, and naproxen ? Some medication that are also used for depression or seizures ? Physical therapy and exercise ? Cognitive behavioral therapy, a psychological, goal-directed approach, in which patients learn how to modify physical, behavioral, and emotional triggers of pain and stress. IF YOU ARE PRESCRIBED OPIOIDS FOR PAIN: ? Never take opioids in greater amounts or more often than prescribed. ? Follow up with your primary health care provider. o Work together to create a plan on how to manage your pain. o Talk about ways to help manage your pain that don?t involve prescription opioids. o Talk about any and all concerns and side effects. ? Help prevent misuse and abuse o Never sell or share prescription opioids. o Never use another person?s prescription opioids. ? Store prescription opioids in a secure place and out of reach of others (this may include visitors, children, friends, and family). ? Safely dispose of unused prescription opioids: Find your community drug take-back program or your pharmacy mail-back program, or flush them down the toilet, following guidance from the Food and Drug Administration (www.fda.gov/Drugs/Re sourcesForYou). ? Visit www.cdc.gov/drugoverd ose to learn about the risks of opioids abuse and overdose. ? If you believe you may be struggling with addiction, tell your health body care manager and ask for guidance or call [employer] at 5-814-696-NIRL. v Source: US Department of Health and Human Services/Center for Disease Control & Prevention [facility] Medications Given: Medication Dose Route No medications found. Medi (more content not included)... Normal [facility] MICRO OTHER TESTSOrdered By: Jacqui Munoz on 12-19-2021 Rapid COV Int NEG Ctl Pass (12/19/21 4:55 PM) Normal [facility] [place] Rapid COV Int POS Ctl Pass (12/19/21 4:55 PM) Normal [facility] [place] SARS-CoV+SARS-CoV-2 (COVID-19) Ag IA.rapid Ql (Resp) Not Detected (12/19/21 4:55 PM) Normal Not Detected [facility] [place] S[place] Rapid COVID Antigen [place]on 12-19-2021 Rapid COV Int NEG Ctl Pass Normal [facility] Comment on above: Performed By: #### 2 [id number] ####[facility] [address] [place] [address] Rapid COV Int POS Ctl Pass Normal [facility] Comment on above: Performed By: #### 2 [id number] ####[facility] [address] [place] [address] SARS-CoV+SARS-CoV-2 (COVID-19) Ag IA.rapid Ql (Resp) Not detected Normal Not Detected [facility] Comment on above: Result Comment: The Smart Surgical Veritor? System for Rapid Detection of SARS-CoV-2 is a chromatographic digital immunoassay intended for the direct and qualitative detection of SARS-CoV-2 nucleocapsid antigens in nasal swabs from individuals who are suspected of COVID-19 by their healthcare provider within the first five days of the onset of symptoms. Negative results should be treated as presumptive, do not rule out SARS-CoV-2 infection and should not be used as the sole basis for treatment or patient management decisions, including infection control decisions. Negative results should be considered in the context of a patient?s recent exposures, history and the presence of clinical signs and symptoms consistent with COVID-19, and confirmed with a molecular assay, if necessary, for patient management. For in vitro diagnostic use. In the [place], only for use under an Emergency Use Authorization. In the [place], this test has not been FDA cleared or approved; this test has been authorized by FDA under an EUA for use by authorized laboratories; use by laboratories certified under the CLIA, 42 U.S.C. ?263a, that meet requirements to perform moderate, high, or waived complexity tests and at the Point of Care (POC), i.e., in patient care settings operating under a CLIA Certificate of Waiver, Certificate of Compliance, or Certificate of Accreditation. This test has been authorized only for the detection of proteins from SARS-CoV-2, not for any other viruses or pathogens; and, in the [place], this test is only authorized for the duration of the declaration that circumstances exist justifying the authorization of emergency use of in vitro diagnostics for detection and/or diagnosis of the virus that causes COVID-19 under Section 564(b)(1) of the Act, 21 U.S.C. ? 360bbb-3(b)(1), unless the authorization is terminated or revoked sooner. Performed By: #### 2 [id number] ####[place] [address] ADMITTED TO INTENSIVE CARE UNIT FOR CONDITION OF INTEREST:FIND:PT: NO Normal [facility] Comment on above: Performed By: #### 2 [id number] ####[place] [address] EMPLOYED IN A HEALTHCARE SETTING:FIND:PT: NO Normal [facility] Comment on above: Performed By: #### 2 [id number] ####[place] [address] FIRST TEST FOR CONDITION OF INTEREST:FIND:PT: YES Normal [facility] Comment on above: Performed By: #### 2 [id number] ####[place] [address] HAS SYMPTOMS RELATED TO CONDITION OF INTEREST:FIND:PT: YES Normal [facility] Comment on above: Performed By: #### 2 [id number] ####[facility] [address] [place] [address] HOSPITALIZED FOR CONDITION OF INTEREST:FIND:PT: NO Normal [facility] Comment on above: Performed By: #### 2 [id number] ####[facility] [address] [place] [address] STATUS:FIND:PT: NO Normal [facility] Comment on above: Performed By: #### 2 [id number] ####[place] [address] RESIDES IN A CONGREGATE CARE SETTING:FIND:PT: NO Normal [facility] Comment on above: Performed By: #### 2 [id number] ####[place] [address] COVID-19 Antigenon 1 COVID-19 Antigen Healthcare Worker?: N Juan A Reference Juan A Reference Negative SARS-CoV+SARS-CoV-2 (COVID-19) Ag [Presence] in Respiratory specimen by Rapid immunoassay Negative for SARS Antigen by ANIBAL COVID19 Blank Space Juan A Disclaimer Negative results, from patients with symptom Juan A Disclaimer onset beyond five days, should be treated as Juan A Disclaimer presumptive and confirmation with a molecular Juan A Disclaimer assay, if necessary, for patient management, Juan A Disclaimer may be performed. Negative results do not rule Juan A Disclaimer out COVID-19 and should not be used as the sole Juan A Disclaimer basis for treatment or patient management Juan A Disclaimer decisions, including infection control decisions. Juan A Disclaimer Negative results should be considered in the Juan A Disclaimer context of a patient's recent exposures, history Juan A Disclaimer and the presence of clinical signs and symptoms Juan A Disclaimer consistent with COVID-19. COVID19 Blank Space Juan A Disclaimer The Juan A SARS Antigen ANIBAL does not differentiate Juan A Disclaimer between SARS-CoV and SARS-CoV-2. COVID19 Blank Space Juan A Disclaimer This test was developed and its performance Juan A Disclaimer characteristic determined by [employer] and Juan A Disclaimer validated at [facility]. This Juan A Disclaimer test has not been FDA cleared or approved. This Juan A Disclaimer test has been authorized by FDA under an Emergency Use Juan A Disclaimer Authorization (EUA). This test has been validated Juan A Disclaimer in accordance with the FDA's Guidance Document (Policy Juan A Disclaimer for Diagnostics Testing in Laboratories Certified to Juan A Disclaimer Perform High Complexity Testing under CLIA prior to Juan A Disclaimer Emergency Use Authorization for Coronavirus Juan A Disclaimer during the Public Health Emergency) Juan A Disclaimer issued on August 29, 2019. This test is only authorized Juan A Disclaimer for the duration of time the declaration that Juan A Disclaimer circumstances exist justifying the authorization of Juan A Disclaimer the emergency use of in vitro diagnostic tests for Juan A Disclaimer detection of SARS-CoV-2 virus and/or diagnosis of Juan A Disclaimer COVID-19 infection under section 564(b)(1) of the Juan A Disclaimer Act, 21 U.S.C. 360bbb-3(b)(1), unless the Juan A Disclaimer authorization is terminated or revoked sooner. PERFORMED BY: [facility] [place] [address] PATHOLOGIST FITNESS TECHNICIAN TAYLOR FERRO M.D. [facility] Comment on above: Performed By: #### S OFIANEG, COVID-19 JUAN A #### [facility] [address] [place] [address] [place] Juan A Ag Negativeon 01-15-20 21 Juan A Ag Negative Negative Normal Negative [facility] Comment on above: Result Comment: This is a duplicate Juan A SARS Antigen (ANIBAL) result to be used for statistical tracking purpose only. PERFORMED BY: [facility] [address] [place] [id number] PATHOLOGIST FITNESS TECHNICIAN TAYLOR FERRO M.D. Performed By: #### S OFIANEG, COVID-19 JUAN A #### [facility] [address] [place] [address] [facility] Vital Signs Date Time Vital Sign Value Performing Clinician Gisella cardoza 05-15-2022 17:30-0500 Body temperature 98.6 [degF] James Tineo [facility] 05-15-2022 17:30-0500 Diastolic blood pressure 79 mm[Hg] James Tineo [facility] 05-15-2022 17:30-0500 Heart rate 109 /min James Tineo [facility] 05-15-2022 17:30-0500 Respiratory rate 20 /min James Tineo [facility] 05-15-2022 17:30-0500 SaO2% (BldA) [Mass fraction] 100 % James Tineo [facility] 05-15-2022 17:30-0500 Systolic blood pressure 116 mm[Hg] James Tineo [facility] 12-19-2021 16:27-0400 Body temperature 98.42 [degF] James Tineo [facility] 12-19-2021 16:27-0400 Diastolic blood pressure 84 mm[Hg] James Tineo [facility] 12-19-2021 16:27-0400 Heart rate 109 /min James Tineo [facility] 12-19-2021 16:27-0400 Respiratory rate 18 /min James Tineo [facility] 12-19-2021 16:27-0400 SaO2% (BldA) [Mass fraction] 99 % James Tineo [facility] 12-19-2021 16:27-0400 Systolic blood pressure 124 mm[Hg] James Tineo [facility] Encounters Encounter Date Encounter Type Care Provider Facility Start: 05-15-2022 End: 05-15-2022 Emergency department patient visit James Tineo [place] Start: 05-15-2022 End: 05-15-2022 Emergency department patient visit James Tineo [facility] Start: 04-27-2022 End: 04-27-[address] MAIKOL PADRON Facility: Start: 03-24-2022 End: 03-25-[address] GALVAN LISTED JOAQUINA Facility: Start: 12-19-2021 End: 12-19-2021 Emergency department patient visit James Tineo [place] Start: 12-19-2021 End: 12-19-2021 Emergency department patient visit James Tineo [facility] Procedures Date Procedure Procedure Detail Performing Clinician Start: 05-18-2016 Betamethasone preparation (product) James Tineo Betamethasone (substance) James Tineo Betamethasone (substance) James Tineo Tonsillectomy James Tineo Tonsillectomy and adenoidectomy Tonsillectomy and adenoidectomy( Confirmed ) James Tineo Immunizations Immunization Date Immunization Notes Care Provider Brian perez 11-22-2020 tetanus toxoid, redu aries diphtheria toxoid, and acellular pertussis vaccine, adsorbed James Tineo [facility] Comment on above: Reason for Medicatio n: Other (see comment) Payers Date Payer Category Payer Unknown [id number] 1995 Unknown [id number] 1996 Unknown [id number] 1996 Unknown [id number] 1959 Unknown [id number] Social History Date Type Detail Facility Start: 12-19-2021 Tobacco smoking status Heavy t obacco smoker (finding) [facility] Sex Assigned At Female [facility] Functional Status Date Assessment Result Facility 05-15-2022 Functional Status Yes [facility] 12-19-2021 Functional Status N/A [facility] Hospital Discharge instructions 05-15-2022 Note Date & Type Note Facility 05-15-2022 Hospital Discharg e instructions Patient Education 05/15/2022 18:00:48 Viral Respiratory Infection, Qcli-Qg-Harr Viral Respiratory Infection A viral respiratory infection is an illness that affects parts of the body that are used for breathing. These include the lungs, nose, and throat. It is caused by a germ called a virus. Some examples of this kind of infection are: A cold. The flu (influenza). A respiratory syncytial virus (RSV) infection. A person who gets this illness may have the following symptoms: A stuffy or runny nose. Yellow or green fluid in the nose. A cough. Sneezing. Tiredness (fatigue). Achy muscles. A sore throat. Sweating or chills. A fever. A headache. Follow these instructions at home: Managing pain and congestion Take amhj-wdl-lnobxmx and prescription medicines only as told by your doctor. If you have a sore throat, gargle with salt water. Do this 3 4 times per day or as needed. To make a salt-water mixture, dissolve 1 tsp of salt in 1 cup of warm water. Make sure that all the salt dissolves. Use nose drops made from salt water. This helps with stuffiness (congestion). It also helps soften the skin around your nose. Drink enough fluid to keep your pee (urine) pale yellow. General instructions Rest as much as possible. Do not drink alcohol. Do not use any products that have nicotine or tobacco, such as cigarettes and e-cigarettes. If you need help quitting, ask your doctor. Keep all follow-up visits as told by your doctor. This is important. How is this prevented? Get a flu shot every year. Ask your doctor when you should get your flu shot. Do not let other people get your germs. If you are sick: ?Stay home from work or school. ?Wash your hands with soap and water often. Wash your hands after you cough or sneeze. If soap and water are not available, use hand faith doctor. Avoid contact with people who are sick during cold and flu season. This is in fall and winter. Get help if: Your symptoms last for 10 days or longer. Your symptoms get worse over time. You have a fever. You have very bad pain in your face or forehead. Parts of your jaw or neck become very swollen. Get help right away if: You feel pain or pressure in your chest. You have shortness of breath. You faint or feel like you will faint. You keep throwing up (vomiting). You feel confused. Summary A viral respiratory infection is an illness that affects parts of the body that are used for breathing. Examples of this illness include a cold, the flu, and respiratory syncytial virus (RSV) infection. The infection can cause a runny nose, cough, sneezing, sore throat, and fever. Follow what your doctor tells you about taking medicines, drinking lots of fluid, washing your hands, resting at home, and avoiding people who are sick. This information is not intended to replace advice given to you by your health care provider. Make sure you discuss any questions you have with your health care provider. Document Released: 04/27/2009 Document Revised: 05/23/2019 Document Reviewed: 06/25/2018 [email or web address] Patient Education 2020 [employer]. Follow Up Care 05/15/2022 17:30:41 With:Alan DOE, Starla Whitfield Address: [address] [place] [address]- When:05/18/2022 [facility] Evaluation + Plan note 05-15-2022 Note Date & Type Note Facility 05-15-2022 Evaluation + Plan note Extrac dwayne from: Title:ED Note Author:Meghan Paniagua PA-C Date :05/15/22 1. Viral respiratory illness (J98.8: Other specified respiratory disorders) Ordered: brompheniramine/dextromethorphan/PSE, 10 mL, Oral, q4hr for cold symptoms for 2 day(s), 80 mL, Refill(s) 0, MAX 40 mL/day, [id number], 157.5, cm, 05/15/22 17:48:00 EST, Height/Length Dosing, 59.5, kg, 05/15/22 17:48:00 EST, Weight Dosing Other viral agents as the cause of diseases classified elsewhere (B97.89: Other viral agents as the cause of diseases classified elsewhere) [facility] Evaluation + Plan note 12-19-2021 Note Date & Type Note Facility 12-19-2021 Evaluation + Plan note Extrac dwayne from: Title:ED Note Author:James Tineo DO Date: Suspected COVID-19 virus inf ection (Z20.822: Contact with and (suspected) exposure to COVID-19) Orders: Rapid COVID Antigen [place] [facility] Hospital course Narrative Note Date & Type Note Facility Hospital course Narrative No data available for this section [facility] Hospital Discharge instructions Note Date & Type Note Facility Hospital Discharge instructions No data available for this section [facility] Progress note Note Date & Type Note Facility Progress note No data available for this section [facility] Summary Purpose Family History No Family History Records FoundNo Family History Records FoundNo Family History Records Found Advance Directives No Advanced Directives Records FoundNo Advanced Directives Records FoundNo Advanced Directives Records Found Additional Source Comments INFORMATION SOURCE (unrecogn ized section and content) DATE CREATED AUTHOR 07/03/2021 [facility] DATE CREATED AUTHOR AUTHOR'S ORGANIZ ATION 05/05/2022 [facility] DATE CREATED AUTHOR AUTHOR'S ORGANIZ ATION 05/20/2022 [facility] Care Team (unrecognized sect ion and content) Personnel Name: Meghan Cevallos MD Address: [address] [place] [address] Name: Debra Forman Name: Ruth Ann Butt Personnel Name: Starla Phillips MD Address: Address: [address] [place] [address] Name: Debra Forman Name: Ruth Ann Butt FOR RECORDS PERTAINING TO PATIENTS WHO ARE OR HAVE BEEN ENROLLED IN A CHEMICAL DEPENDENCY/SUBSTANCEABUSE PROGRAM, SOME INFORMATION MAY BE OMITTED. This clinical summary was aggregated from multiple sources. Caution should be exercised in using it in the provision of clinical care. This summary normalizes information from multiple sources, and as a consequence, information in this document may materially change the coding, format and clinical context of patient data. In addition, data may be omitted in some cases. CLINICAL DECISIONS SHOULD BE BASED ON THE PRIMARY CLINICAL RECORDS. [facility] [employer] provides no warranty or guarantee of the accuracy or completeness of information in this document.
== END 2023-10-04 16:35 | disposition home or self-care (01) ==
LOC: RAD 16:34
PROVIDERS: Visit Provider Obstetrics & Gynecology
DX: O26.859 Spotting complicating pregnancy, unspecified trimester (principal); Z3A.08 8 weeks gestation of pregnancy
CPT/HCPCS: 76817

== ENCOUNTER 2024-10-22 12:37 | Outpatient (OUT) | payer OTHER, SELFPAY ==
--- NOTE | 2024-10-22 13:10 | XR_ITS ---
[place] [id number] Patient Name: ZEUS MORRIS MRN: [id number] date: 1995 Sex: F Assigned Patient [facility] Current Patient Location: [facility] Accession/Order Number: [id number] Exam Date: 10/22/2024 13:56 Report Date: 10/22/2024 13:56 At the request of: MAIKOL PADRON DO Procedure: XR chest 2V Plain film chest 2 view HISTORY: PAT COMPARISON: None FINDINGS: SUPPORT DEVICES: None POSTSURGICAL CHANGES: None HEART: Within normal limits PULMONARY IJEOMA: Within normal limits MEDIASTINUM: Unremarkable LUNGS AND PLEURA: No acute lung process, pleural effusion or pneumothorax identified. BONY STRUCTURES: Intact ADDITIONAL FINDINGS None XR/XR chest 2V IMPRESSION: No acute process. Impression dictated by: Heath Raymundo M.D. 10/22/2024 1:56 PM Dictation Location: [place] [address] Electronically authenticated by: [id number] Y Date: 10/22/2024 13:56
[2024-10-22 13:31] LABS: Basophils Percent Auto 0.5 % (0.2-2.0); Eosinophils Absolute Auto 0.1 10^3/uL (0.0-0.7); Hematocrit 41.7 % (36.0-48.0); Hemoglobin 14.5 g/dL (12.0-16.0); Immature Granulocytes Abs Auto 0.03 10^3/uL (0.00-0.03); Immature Granulocytes Pct Auto 0.5 % (0.0-0.5); Lymphocytes Percent Auto 31.4 % (20.5-60.0); Mean Corpuscular HGB Conc 34.8 g/dL (29.9-35.2); Mean Corpuscular Hemoglobin 30.7 pg (26.7-34.0); Mean Corpuscular Volume 88.2 fL (81.0-99.0); Mean Platelet Volume 8.8 fL (9.5-13.5); Monocytes Absolute Auto 0.4 10^3/uL (0.3-0.8); Monocytes Percent Auto 5.7 % (1.7-12.0); Neutrophils Absolute Auto 3.8 10^3/uL (1.4-6.5); Neutrophils Percent Auto 60.9 % (43.0-75.0); Platelet Count 221 10^3/uL (150-450); Red Blood Count 4.73 10^6/uL (4.20-5.40); Red Cell Distribution Width 11.9 % (11.0-15.0); White Blood Count 6.3 10^3/uL (4.0-11.0)
[2024-10-22 13:39] LABS: INR 1.05; Partial Thromboplastin Time 27.3 sec (22.3-36.2); Prothrombin Time 11.1 sec (9.0-11.6)
== END 2024-10-22 12:38 | disposition home or self-care (01) ==
LOC: PST 12:39
PROVIDERS: Visit Provider Obstetrics & Gynecology
DX: Z01.810 Encounter for preprocedural cardiovascular examination (principal); Z01.812 Encounter for preprocedural laboratory examination
CPT/HCPCS: 71046; 85025; 85610; 85730

== ENCOUNTER 2024-12-17 14:24 | Outpatient (RCR) | payer OTHER, SELFPAY | END 2024-12-26 23:59 | disposition home or self-care (01) | LOC: HEMC 14:24 | PROVIDERS: Visit Provider Internal Medicine Hematology & Oncology | DX: D68.00 Von Willebrand disease, unspecified (principal); F17.290 Nicotine dependence, other tobacco product, uncomplicated; D50.9 Iron deficiency anemia, unspecified | CPT/HCPCS: 85610; 85730; G0463 ==

== ENCOUNTER 2025-04-30 16:09 | Outpatient (OUT) | payer OTHER, SELFPAY ==
--- OUTSIDE RECORDS SUMMARY | 2024-11-12 08:00 | XMS_ITS ---
Author Organization The [facility] in [place] Address [address] [place] [address] Care Team Providers Care Hand Expansion Envelope Maker Name Role Phone -None, Unknown Primary Care Provider Mariajose Humphreys Unavailable [phone] REASON FOR VISIT MD New PT Hem Encounters Encounter Location Date Provider Diagnosis [facility] [address] [place] [phone] 11/12/2024 Mariajose Stewart Plan Of Treatment No Information Progress Notes * Lu ESTRADA SDOB: [birth year] (29 yo F)Acc No.[id number]:11/12/2024 UNLOCKED PROGRESS NOTE Progress Notes Patient: Lu SUNSHINE :?Mariajose Stewart M.D.:1995???Age:29 Y ???Sex:FemaleDate:11/12/2024Phone:[phone]:[address] [place] [address] [address], [place], [id number]:Unknown -None Subjective: * Chief Complaints: * 1 . MD New PT Hem. * Medical History: Objective: * Vitals: Assessment: Plan: * Treatment: * * Electronic signature of Mariajose Stewart MD, [id number] on 04/30/2025 at 04:14 PM ESTSign off status: PendingVisit Status:?CANC (Cancelled) * Provider: Augustine Stewart M.D. Date: 0 11/12/2024 Generated for Printing/Faxing/eTransmitting on:?04/30/2025 04:14 PM EST
--- OUTSIDE RECORDS SUMMARY | 2024-12-17 09:15 | XMS_ITS ---
Author Organization The [facility] in [place] Address [address] [place] [address] Care Team Providers Care Drop Pit Worker Name Role Phone -None, Unknown Primary Care Provider Mariajose Humphreys Unavailable [phone] REASON FOR VISIT MD New PT Hem Encounters Encounter Location Date Provider Diagnosis [facility] On[facility] [address] [place] [phone] 12/17/2024 Mariajose Stewart Plan Of Treatment No Information Progress Notes * Lu ESTRADA SDOB: [birth year] (29 yo F)Acc No.[id number]:12/17/2024 UNLOCKED PROGRESS NOTE Progress Notes Patient: Lu SUNSHINE :?Mariajose Stewart M.D.:1995???Age:29 Y ???Sex:FemaleDate:12/17/2024Phone:[phone]:[address] [place] [address] [address], [place], [place]Bzq:Unknown -None Subjective: * Chief Complaints: * 1 . MD New PT Hem. * Medical History: Objective: * Vitals: Assessment: Plan: * Treatment: * * Electronic signature of Mariajose Stewart MD, [id number] on 04/30/2025 at 04:16 PM ESTSign off status: PendingVisit Status:?ANSPH (Voice) * Provider: Augustine Stewart M.D. Date: 0 12/17/2024 Generated for Printing/Faxing/eTransmitting on:?04/30/2025 04:16 PM EST
--- OUTSIDE RECORDS SUMMARY | 2025-01-07 09:30 | XMS_ITS ---
Author Organization The [facility] in [place] Address [address] [place] [address] Care Team Providers Care Gradall Operator Name Role Phone -None, Unknown Primary Care Provider Mariajose Humphreys [phone] REASON FOR VISIT MD TELEHEALTH Encounters Encounter Location Date Provider Diagnosis [facility] Oncology [address] [place] [phone] 01/07/2025 Mariajose Stewart Plan Of Treatment No Information Progress Notes * Lu ESTRADA SDOB: [birth year] (29 yo F)Acc No.[id number]:01/07/2025 UNLOCKED PROGRESS NOTE Progress Notes Patient: Lu SUNSHINE :?Mariajose Stewart M.D.:1995???Age:29 Y ???Sex:FemaleDate:01/07/2025Phone:[phone]:[address] [place] [address] [address], [place], [id number]:Unknown -None Subjective: * Chief Complaints: * 1 . TELEHEALTH. * Medical History: Objective: * Vitals: Assessment: Plan: * Treatment: * * Electronic signature of Mariajose Stewart MD, [id number] on 04/30/2025 at 04:16 PM ESTSign off status: PendingVisit Status:?CANC (Cancelled) * Provider: Augustine Stewart M.D. Date: 0 01/07/2025 Generated for Printing/Faxing/eTransmitting on:?04/30/2025 04:16 PM EST
--- OUTSIDE RECORDS SUMMARY | 2025-01-28 10:30 | XMS_ITS ---
Author Organization The [facility] in [place] Address [address] [place] [address] Care Team Providers Care Design Director Name Role Phone -None, Unknown Primary Care Provider UnavailMariajose Chavarria Unavailable [phone] REASON FOR VISIT MD TELEHEALTH Encounters Encounter Location Date Provider Diagnosis [facility] Oncology [address] [place] [phone] 01/28/2025 Mariajose Stewart Plan Of Treatment No Information Progress Notes * Lu ESTRADA SDOB: [birth year] (29 yo F)Acc No.[id number]:01/28/2025 UNLOCKED PROGRESS NOTE Progress Notes Patient: Lu SUNSHINE :?Mariajose Stewart M.D.:1995???Age:29 Y ???Sex:FemaleDate:01/28/2025Phone:[phone]:[address] [place] [address] [address], [place], [place]-[id number]:Unknown -None Subjective: * Chief Complaints: * 1 . TELEHEALTH. * Medical History: Objective: * Vitals: Assessment: Plan: * Treatment: * * Electronic signature of Mariajose Stewart MD, [id number] on 04/30/2025 at 04:16 PM ESTSign off status: PendingVisit Status:?ANSPH (Voice) * Provider: Augustine Stewart M.D. Date: 0 01/28/2025 Generated for Printing/Faxing/eTransmitting on:?04/30/2025 04:16 PM EST
--- OUTSIDE RECORDS SUMMARY | 2025-02-04 10:00 | XMS_ITS ---
Author Organization The [facility] in [place] Address [address] [place] [address] Care Team Providers Care Product Development Assistant Name Role Phone -None, Unknown Primary Care Provider Mariajose Humphreys [phone] REASON FOR VISIT MD TELEHEALTH Encounters Encounter Location Date Provider Diagnosis [facility] Oncology [address] [place] [phone] 02/04/2025 Mariajose Stewart Plan Of Treatment No Information Progress Notes * Lu ESTRADA SDOB: [birth year] (29 yo F)Acc No.[id number]:02/04/2025 UNLOCKED PROGRESS NOTE Progress Notes Patient: Lu SUNSHINE :?Mariajose Stewart M.D.:1995???Age:29 Y ???Sex:FemaleDate:02/04/2025Phone:[phone]:[address] [place] [address] [address], [place], [id number]:Unknown -None Subjective: * Chief Complaints: * 1 . TELEHEALTH. * Medical History: Objective: * Vitals: Assessment: Plan: * Treatment: * * Electronic signature of Mariajose Stewart MD, [id number] on 04/30/2025 at 04:14 PM ESTSign off status: PendingVisit Status:?CANC (Cancelled) * Provider: Augustine Stewart M.D. Date: 0 02/04/2025 Generated for Printing/Faxing/eTransmitting on:?04/30/2025 04:14 PM EST
--- OUTSIDE RECORDS SUMMARY | 2025-04-17 13:30 | XMS_ITS | Encounter Summary ---
Author Organization [facility] Address [address] [facility] [place] [address] Care Team Providers Care Remote Pilot Operator Name Role Phone Unallocated, Noms Provider Primary Care Provi alecia Sydney Stallworth Unavailable Encounter Details DateTypeDepartmentCare Team (Latest Contact Info)Knbhnqpmvxt16/20/2025 1:30 PM ESTAncillary Procedure [facility] [address] [place] [address] [place] [address] Missed menses; Positive urine test ([facility]) Social History Tobacco UseTypesPacks/DayYears UsedDateSmoking Tobacco: FormerCigarettes Smokeless Tobacco: CurrentAlcohol UseStandard Drinks/WeekCommentsNot Currently0 (1 standard drink = 0.6 oz pure alcohol)Caffeine intake: 1 cup coffee/dailyPHQ-2 AnswerDate RecordedPatient Health Questionnaire-2 Xjsoz018Edinburgh Depression ScaleAnswerDate RecordedEdinburgh Depression Scale Ddfzp461The thought of harming myself has occurred to me.Never 06/11/2024Estimated Date of ZwmcavkiRavxneoaOps54/02/2026ased on last menstrual period of 02/20/2025Sex and Gender InformationValueDate RecordedSex Assigned at BirthNot on fileLegal SefBqbmoj83/15/2023 6:48 PM EDTGender Identity Not on fileSexual OrientationNot on fileOccupationIndustryJob Start DateJob End DateRed lobsterNot on fileNot on fileNot on filedocumented as of this encounter Plan of Treatment DateTypeDepartmentCare Team (Latest Contact Info)Perrimxfnaq34/22/2025 11:20 AM ESTRoutine [facility] [address] [place] [phone] Efe Mora, DO [address] [facility] [place] [address] documented as of this encounter Goals GoalPatient Goal TypeAssociated ProblemsRecent ProgressPatient-Stated?Author Reminders Care PlanOB RemindersNoOpen Scheduling, Backgrounddocumented as of this encounter Procedures Procedure NamePriorityDate/TimeAssociated DiagnosisCommentsUS OB TRANSVAGINAL Oftjgho1704/17/2025 1:58 PM EST Missed menses Positive urine test ([facility]) documented in this encounter Results * OB transvaginal (04/17/2025 1:58 PM EST)Anatomical RegionLateralityModality BodyUltrasoundSpecimen (Source)Anatomical Location / LateralityCollection Method / VolumeCollection TimeReceived Time04/17/2025 3:17 PM EST Impressions 04/17/2025 3:22 PM EST Findings consistent with a live intrauterine gestation, current sonographic age of 8 weeks and 1 day resulting in an estimated date of delivery of November 26, 2025. TRANSCRIBED BY: ? ELECTRONICALLY SIGNED BY: Baljeet Monte MD Narrative 04/17/2025 3:22 PM EST FINDINGS: A single intrauterine gestational sac is present. ??No subchorionic hemorrhage. ??A single pole is present. Normal heart rate at 156 beats per minute. ??Yolk sac also is seen. ?? Current sonographic age is 8 weeks and 1 day based on the crown-rump length measurement of 1.8 cm. ??Based on this age, current estimated date of delivery is November 26, 2025. ??No pelvic fluid or adnexal mass present. ??Cervix is closed, 4.0 cm length. Procedure Note Baljeet Monte MD - 04/17/2025 FINDINGS: A single intrauterine gestational sac is present. No subchorionichemorrhage. A single pole is present. Normal heart rate at156 beats per minute. Yolk sac also is seen. Current sonographic age is8 weeks and 1 day based on the crown-rump length measurement of 1.8 cm.Based on this age, current estimated date of delivery is November 26, 2025. Nopelvic fluid or adnexal mass present. Cervix is closed, 4.0 cm length. IMPRESSION: Findings consistent with a live intrauterine gestation, currentsonographic age of 8 weeks and 1 day resulting in an estimated date ofdelivery of November 26, 2025. TRANSCRIBED BY: ELECTRONICALLY SIGNED BY: Baljeet Monte MD Authorizing ProviderResult TypeResult StatusCorey Morgan DOIMG OB US PROCEDURES Final Result documented in this encounter Visit Diagnoses Diagnosis Missed menses Positive urine test ([facility]) documented in this encounter Additional Health Concerns Active ProblemsNoted DateDiagnosed DateOB Bqiecsvva01/20/2025 documented as of this encounter Care Teams Team MemberRelationshipSpecialtyStart DateEnd Date Unallocated, Noms Provider, [facility] [place] [address] [facility] - [facility] Sydney Stallworth PA [address] [place], [place] [address] [address] PCP - [facility]02/27/24documented as of this encounter
--- OUTSIDE RECORDS SUMMARY | 2025-04-17 14:00 | XMS_ITS | Encounter Summary ---
Author Organization [facility] Address [address] [place] [address] Care Team Providers Care Client Services Analyst Name Role Phone Unallocated, Noms Provider Primary Care Provi alecia Sydney Stallworth Unavailable Reason for Visit * ReasonCommentsRoutine Visit Encounter Details DateTypeDepartmentCare Team (Latest Contact Info)Ivpmekpzdif02/20/2025 2:00 PM ESTInitial [facility] [place] [facility] [address] [place] [address] Efe Mora DO [address] [facility] [place] [address] GA: 8w0d Social History Tobacco UseTypesPacks/DayYears UsedDateSmoking Tobacco: FormerCigarettes Smokeless Tobacco: Current Tobacco Cessation:Ready to Q uit: Not Asked; Counseling Given: Not Answered Alcohol UseStandard Drinks/WeekCommentsNot Currently0 (1 standard drink = 0.6 oz pure alcohol)Caffeine intake: 1 cup coffee/dailyPHQ-2AnswerDate RecordedPatient Health Questionnaire-2 Sdqnv925Edinburgh Depression Scale AnswerDate RecordedEdinburgh Depression Scale Ydzfi865The thought of harming myself has occurred to me.Never06/11/2024Estimated Date of DdxkmxkdRfagtjwsWyp11/02/2026ased on last menstrual period of 02/20/2025 Sex and Gender InformationValueDate RecordedSex Assigned at BirthNot on file Legal IfeShuxie76/15/2023 6:48 PM EDTGender IdentityNot on fileSexual OrientationNot on fileOccupationIndustryJob Start DateJob End DateRed lobsterNot on fileNot on fileNot on filedocumented as of this encounter Last Filed Vital Signs Vital SignReadingTime TakenCommentsBlood Gwwwiofk186/6811 2:13 PM EST Pulse--Temperature--Respiratory Rate--Oxygen Saturation--Inhaled Oxygen Concentration--Oysyag62.9 kg (132 lb)04/17/2025 2:13 PM ESTHeight--Body Mass Index23.3808 11:30 AM EDTdocumented in this encounter Progress Notes * Lillian Miller - 04/17/2025 2:00 PM EST Reason for Appointment: Patient ID: Lu Estrada is a 29 y.o. female who presents for Routine Visit Patient presents today for a Nurse OB Intake appointment. Patient is 8w0d with a Estimated Date of Delivery: 11/27/25 OB History Para Term AB Living 5 4 3 1 4 SAB IAB Ectopic Multiple Live Births 4 # Outcome Date GA Lbr Karthik/2nd Weight Sex Type Anes PTL Lv 5 Current 4 Term 05/02/24 39w0d Vag-Spont CHAN 3 11/22/20 35w0d 5 lb 2 oz M Vag-Spont Y CHAN 2 Term 07/29/16 38w0d 6 lb 15 oz F Vag-Spont Y CHAN 1 Term 03/03/14 7 lb 13 oz M Vag-Spont CHAN Current Medications: currently has no medications in their medication list. Medical History: Active Ambulatory Problems Diagnosis Date Noted Acute severe exacerbation of asthma (HCC) 08/18/2009 Allergic rhinitis due to allergen 08/18/2009 Herpes simplex viral infection 01/10/2023 Irregular periods 01/10/2023 Resolved Ambulatory Problems Diagnosis Date Noted No Resolved Ambulatory Problems Past Medical History: Diagnosis Date BMI 23.0-23.9, adult Herpes History of asthma Irregular bleeding Von Willebrand disease (HCC) Family History Problem Relation Name Age of Onset Diabetes Mother Heart disease Mother Mental illness Mother Other (heart issues) Father Diabetes Maternal Grandmother Cancer Maternal Grandmother Cancer Paternal Grandmother Social History Tobacco Use Smoking status: Former Types: Cigarettes Smokeless tobacco: Never Vaping Use Vaping status: Some Days Substances: Nicotine Substance Use Topics Alcohol use: Not Currently Comment: Caffeine intake: 1 cup coffee/daily Drug use: Not Currently Types: Marijuana Past Surgical History: Procedure Laterality Date TONSILLECTOMY VAGINAL DELIVERY x4 Allergies Allergen Reactions Amoxicillin Latex Penicillins Sulfa Antibiotics Vitals: Estimated body mass index is 23.38 kg/m?? as calculated from the following: Height as of 01/10/23: 5' 3 . Weight as of this encounter: 132 lb. BP: 110/68 Patient's last menstrual period was 02/20/2025. Assessment/Plan Diagnoses and all orders for this visit: Missed menses - US OB transvaginal; Future - Type and screen; Future - ABO/Rh; Future - CBC and differential - Hemoglobin A1c - RPR - Rubella antibody, IgG - Hepatitis B surface antigen - Hepatitis C antibody - HIV-1 and HIV-2 antibodies - Urine culture - POCT , urine manually resulted - POCT urinalysis dipstick manually resulted Positive urine test ([facility]) - US OB transvaginal; Future , unspecified gestational age ([facility]) - Type and screen; Future - ABO/Rh; Future - CBC and differential - Hemoglobin A1c - RPR - Rubella antibody, IgG - Hepatitis B surface antigen - Hepatitis C antibody - HIV-1 and HIV-2 antibodies - Rapid drug screen, urine; Future Encounter for supervision of normal first in first trimester ([facility]) - Rapid drug screen, urine; Future Nurse Note: OB Intake: Patient presents today for first OB visit. Patients history has been reviewed in great detail including any potential risks. Patient signed consent forms and patient desires testing in both trimesters. Patient currently has no complaints and has been advised to drink 6-8 glasses of water a day, eatno raw or undercooked meat, and stay away from [facility]. Patient has also been advised to not change litter boxes and eat 6 small meals a day. Patient has been consulted regarding the do's and don'ts ofpregnancy. Patient was given labs and all questions and concerns were answered. Follow Up: Patient is to return in 4 weeks for routine OB appointment. Follow Up: Patient is to have labs drawn at directed and return to office for initial OB appointment with provider. Patient may call office as needed with any concerns or questions. Nurse Visit Completed by: Lillian Miller documented in this encounter Miscellaneous Notes * Addendum Note - Lillian Miller - 04/17/2025 2:00 PM ESTAddended by: LILLIAN MILLER on: 04/17/2025 02:36 PM Modules accepted: Orders documented in this encounter Plan of Treatment DateTypeDepartmentCare Team (Latest Contact Info)Afwgxjxdxpa00/22/2025 11:20 AM ESTRoutine [facility] [address] [place] [phone] Efe Mora DO [address] [facility] [place] [address] NameTypePriorityAssociated DiagnosesOrder ScheduleType and screenLabRoutine Missed menses , unspecified gestational age ([facility]) Expected: 04/17/2025 (Approximate), Expires: 6ABO/RhLabRoutine Missed menses , unspecified gestational age ([facility]) Expected: 04/17/2025 (Approximate), Expires: 6CBC and differentialLab Routine Missed menses , unspecified gestational age ([facility]) Ordered: 04/17/2025Hemoglobin P7rDbvSgybmqm Missed menses , unspecified gestational age ([facility]) Ordered: 04/17/2025RPRLabRoutine Missed menses , unspecified gestational age ([facility]) Ordered: 04/17/2025Rubella antibody, IgGLabRoutine Missed menses , unspecified gestational age ([facility]) Ordered: 04/17/2025Hepatitis B surface antigenLabRoutine Missed menses , unspecified gestational age ([facility]) Ordered: 04/17/2025Hepatitis C antibodyLabRoutine Missed menses , unspecified gestational age ([facility]) Ordered: 04/17/2025HIV-1 and HIV-2 antibodiesLabRoutine Missed menses , unspecified gestational age ([facility]) Ordered: 04/17/2025Urine cultureMicrobiologyRoutine Missed menses Ordered: 04/17/2025Rapid drug screen, urineLabRoutine , unspecified gestational age ([facility]) Encounter for supervision of normal first in first trimester ([facility]) Expected: 04/17/2025 (Approximate), Expires: 04/17/2026documented as of this encounter Goals GoalPatient Goal TypeAssociated ProblemsRecent ProgressPatient-Stated?Author Reminders Care PlanOB RemindersNoOpen Scheduling, Backgrounddocumented as of this encounter Procedures Procedure NamePriorityDate/TimeAssociated DiagnosisCommentsPOCT , URINE Psdkdbe5604/17/2025 2:08 PM EST Missed menses POCT URINALYSIS FVXLLUJBXelwypg57/20/2025 2:08 PM EST Missed menses documented in this encounter Results * POCT urinalysis dipstick manually resulted (04/17/2025 2:08 PM EST)Component ValueRef RangeTest MethodAnalysis TimePerformed AtPathologist SignatureColor, UAYellowClarity, UAClearGlucose, UANegativeNegative - 2000(110) ++++ mg/dL Bilirubin, UANegativeNegative - 4(70) +++ mg/dLKetones, UANegativeNegative - 160(16) ++++ mg/dLSpec Grav, UA1.0101 - 1.03Blood, UANegativeNegative - 50 Maurice/mcLpH, UA6.55 - 9Protein, UANegativeNegative - 2000(20) ++++ mg/dL Urobilinogen, UA1.00.2 - 12 mg/dLLeukocytes, UANegativeNegative - 500+++ Katiuska/mcLNitrite, UANegativeNegative - PositiveSpecimen (Source)Anatomical Location / LateralityCollection Method / VolumeCollection TimeReceived Time Urine04/17/2025 2:08 PM EST Narrative Authorizing ProviderResult TypeResult StatusCorey Morgan DOPOINT OF CARE TEST ENTER/EDIT ORDERABLESFinal Result * (ABNORMAL) POCT , urine manually resulted (04/17/2025 2:08 PM EST) ComponentValueRef RangeTest MethodAnalysis TimePerformed AtPathologist SignaturePreg Test, UrPositiveNegativeSpecimen (Source)Anatomical Location / LateralityCollection Method / VolumeCollection TimeReceived TimeUrine 04/17/2025 2:08 PM EST Narrative Authorizing ProviderResult TypeResult StatusCorey Morgan DOPOINT OF CARE TEST ENTER/EDIT ORDERABLESFinal Result * US OB transvaginal (04/17/2025 1:58 PM EST)Anatomical RegionLateralityModality [...] Monte MD Authorizing ProviderResult TypeResult StatusCorey Morgan RODRIGUEZ OB US PROCEDURES Final Result documented in this encounter Visit Diagnoses Diagnosis Missed menses Positive urine test ([facility]) Missed menses Positive urine test ([facility]) , unspecified gestational age ([facility]) Encounter for supervision of normal first in first trimester ([facility]) documented in this encounter Additional Health Concerns Active ProblemsNoted DateDiagnosed DateOB Skluhiklp67/20/2025 documented as of this encounter Care Teams Team MemberRelationshipSpecialtyStart DateEnd Date Unallocated, Noms Provider, [place] [address] [facility] - [facility] Sydney Stallworth PA [facility] [place] [address] PCP - [facility]02/27/24documented as of this encounter
--- OUTSIDE RECORDS SUMMARY | 2025-04-30 16:14 | XMS_ITS | Patient Health Record ---
Author Organization The [facility] in [place] Address [address] [place] [address] Care Team Providers Care Teacher Assistant Name Role Phone -None, Unknown Primary Care Provider UnavailMariajose Chavarria Unavailable [phone] Reason For Referral No Information Encounters Encounter Location Date Provider Diagnosis [facility] [address] [place] [address] 12/17/2024 Mariajoseольга Stewart [facility] [address] [place] [address]/02/2025 Mariajose Stewart Plan Of Treatment No Information Insurance Providers Payer Name Payer Address Payer Phone Subscriber Number Group Number Insured Name Patient Relationship to Insured Coverage Start Date Coverage End Date [employer] [place] [address] [place] [id number] Karen Estrada - patient is the insured
--- OUTSIDE RECORDS SUMMARY | 2025-04-30 16:16 | XMS_ITS | Clinical Summary ---
Author Organization [facility] Address [address] [place] [address] Care Team Providers Care Library Media Assistant Name Role Phone Unallocated, [facility] Provider Primary Care Provi alecia Sydney Stallworth Unavailable Allergies Active AllergyReactionsCriticalityNoted NryyRrximoxwTnoyudlzetv12/15/2023Latex 7094Mahaznmyyvc27/15/2023Sulfa Ztzoynarags85/15/2023 Medications MedicationSigDispense QuantityRefillsLast FilledStart DateEnd DateStatus Vit-Fe Fumarate-FA ( Vitamins) 28-0.8 MG tablet Indications:Encounter for supervision of normal first in first trimester ([facility])Take 1 tablet by mouth Daily 30 tablet 1111//[id number]/6Active Slynd 4 MG tablet Indications:Irregular periodsTake 1 tablet by mouth Daily for 28 days 28 tablet 306//[id number]/Discontinued(Ineffective) Active Problems ProblemNoted DateDiagnosed DateHerpes simplex viral qsbmimbpe88/15/2023Irregular shkycex1101/10/2023cute severe exacerbation of qhmhwy8208/18/2009llergic rhinitis due to tvwmjyzv76/23/2010Estimated Date of NnngnorrDgthlbyoTzu39/02/2026 Based on last menstrual period of 02/20/2025 Encounters DateTypeDepartmentCare OwnwVunevmndkap65/20/2025 2:00 PM ESTInitial DARIEN WELSH [address] [place] [id number] Efe Mora DO [place]: 8w0d106/17/2024 1:30 PM ESTAncillary Procedure [facility] [address] [place] [address] Missed menses; Positive urine test ([facility])02/07/2025bstract [facility] OBTAM[facility] [address] [place] [address] Efe Mora DO from Last 3 Months Family History Medical HistoryRelationNameCommentsheart issuesFatherCancerMaternal Grandmother DiabetesMaternal GrandmotherDiabetesMotherHeart diseaseMotherMental illness MotherCancerPaternal GrandmotherRelationNameStatusCommentsDaughter1, healthy FatherAliveMaternal GrandmotherMotherAlivePaternal IenhkurhcbtXbqaoi2Lel6 Social History Tobacco UseTypesPacks/DayYears UsedDateSmoking Tobacco: FormerCigarettes Smokeless Tobacco: Current Tobacco Cessation:Ready to Q uit: Not Asked; Counseling Given: Not Answered Alcohol UseStandard Drinks/WeekCommentsNot Currently0 (1 standard drink = 0.6 oz pure alcohol)Caffeine intake: 1 cup coffee/dailyPHQ-2AnswerDate RecordedPatient Health Questionnaire-2 Paonj429Edinburgh Depression Scale AnswerDate RecordedEdinburgh Depression Scale Jnzso195The thought of harming myself has occurred to me.Never06/11/2024Estimated Date of HvlfapviVbwfiknkHch40/02/2026ased on last menstrual period of 02/20/2025 Sex and Gender InformationValueDate RecordedSex Assigned at BirthNot on file Legal WbbFqicyl71/15/2023 6:48 PM EDTGender IdentityNot on fileSexual OrientationNot on fileOccupationIndustryJob Start DateJob End DateRed lobsterNot on fileNot on fileNot on file Last Filed Vital Signs Vital SignReadingTime TakenCommentsBlood Euockgpz146/6804/17/2025 2:13 PM EST Pulse--Temperature--Respiratory Rate--Oxygen Saturation--Inhaled Oxygen Concentration--Akldrs72.9 kg (132 lb)04/17/2025 2:13 PM LRZOrtzge487 cm (5' 3 ) 01/10/2023 11:30 AM EDTBody Mass Index23.3808 11:30 AM EDT Plan of Treatment DateTypeDepartmentCare Team (Latest Contact Info)Esylpcocowl28/22/2025 11:20 AM ESTRoutine [facility] [address] [place] [address] Efe Mora DO [address] [place] [address] Health MaintenanceDue DateLast DoneCommentsPneumococcal Vaccine: Pediatrics (0 to 5 Years) and At-Risk Patients (6 to 64 Years) (1 of 2 - PCV)2015COVID- 19 Vaccine (1 - 2024- season)2025Influenza Vaccine (#1)2025 Goals GoalPatient Goal TypeAssociated ProblemsRecent ProgressPatient-Stated?Author Reminders Care PlanOB RemindersNoOpen Scheduling, Background Procedures Procedure NamePriorityDate/TimeAssociated DiagnosisCommentsPOCT URINALYSIS UEDZICTUMuefgdu46/20/2025 2:08 PM EST Missed menses POCT , NGQHQEjfywpr32/20/2025 2:08 PM EST Missed menses OB UGOPXBGKVJHZRdyfzpc45/20/2025 1:58 PM EST Missed menses Positive urine test ([facility]) from Last 3 Months Results * (ABNORMAL) POCT , urine manually resulted (04/17/2025 2:08 PM EST) ComponentValueRef RangeTest MethodAnalysis TimePerformed AtPathologist SignaturePreg Test, UrPositiveNegativeSpecimen (Source)Anatomical Location / LateralityCollection Method / VolumeCollection TimeReceived TimeUrine 04/17/2025 2:08 PM EST Narrative Authorizing ProviderResult TypeResult StatusCorey Mogran DOPOINT OF CARE TEST ENTER/EDIT ORDERABLESFinal Result * POCT urinalysis dipstick manually resulted (04/17/2025 [...] Morgan DOIMG OB US PROCEDURES Final Result from Last 3 Months Additional Health Concerns Active ProblemsNoted DateDiagnosed DateOB Ivzgtrzxx70/20/2025 Insurance Care Teams Team MemberRelationshipSpecialtyStart DateEnd Date Unallocated, [place] [address] PCP - GeneralFamily Medicine10/11/23 Sydney Stallworth PA [address] [place], [place] [address] [address] [facility]02/27/24
[2025-04-30 16:48] LABS: Hematocrit 34.5 % (36.0-48.0); Hemoglobin 12.5 g/dL (12.0-16.0); Immature Granulocytes Abs Auto 0.03 10^3/uL (0.00-0.03); Immature Granulocytes Pct Auto 0.4 % (0.0-0.5); Lymphocytes Absolute Auto 1.7 10^3/uL (1.2-3.8); Mean Corpuscular HGB Conc 36.2 g/dL (29.9-35.2); Mean Corpuscular Hemoglobin 31.3 pg (26.7-34.0); Mean Corpuscular Volume 86.5 fL (81.0-99.0); Platelet Count 216 10^3/uL (150-450); Red Blood Count 3.99 10^6/uL (4.20-5.40); White Blood Count 8.1 10^3/uL (4.0-11.0)
[2025-04-30 17:05] LABS: Cannabinoid Screen Urine NEGATIVE (NEGATIVE); Methamphetamines Screen Urine NEGATIVE (NEGATIVE); Tricyclic Antidepressant Urine NEGATIVE (NEGATIVE)
== END 2025-04-30 16:10 | disposition home or self-care (01) ==
LOC: LAB 16:11
PROVIDERS: Visit Provider Obstetrics & Gynecology
DX: Z34.01 Encounter for supervision of normal first pregnancy, first trimester (principal); N92.6 Irregular menstruation, unspecified
CPT/HCPCS: 36415; 80307; 83036; 85025; 86592; 86762; 86803; 86850; 86900; 86901; 87086; 87340; 87389